=== PATIENT | male | born 1980 | race Caucasian/White ===

== ENCOUNTER 2017-01-30 18:11 | Emergency (ER) | payer MEDICAID ==
--- NOTE | 2017-01-30 18:13 | EDPHY ---
H & P Time Seen by Provider: 01/30/17 18:12 Source: Patient Constitutional: Initial Vital Signs Temperature (C) 37.2 C 01/30/17 18:11 Heart Rate 115 H 01/30/17 18:11 Respiratory Rate 18 01/30/17 18:11 Blood Pressure 166/116 H 01/30/17 18:11 O2 Sat (%) 98 01/30/17 18:11 O2 Delivery Mode Room Air Allergies/Adverse Reactions: No Known Allergies Allergy (Unverified 01/30/17 18:46) Home Medications: Medication Instructions Recorded NK [No Known Home Meds] 01/30/17 Medical Decision Making ED Course/Re-evaluation: CHIEF COMPLAINT: Psychiatric evaluation HISTORY OF PRESENT ILLNESS:The patient was brought in by PD. He states "they are going to bust into your hospital and shoot me. You won't be able to stop them." He refuses to answer further questions. According to the patient's PD report. The patient told PD " I have to commit suicide because I'm being followed by the [facility]." The patient plans to jump into traffic. He reports past attempts of hanging and heroin OD. Patient is having delusions of being followed by [facility]. REVIEW OF SYSTEMS: ROS is limited because patient refuses to answer questions. PHYSICAL EXAM: General Appearance: Disheveled appearing. Refuses to answer questions. Head: Atraumatic without scalp tenderness or obvious injury Eyes: Pupils equal, round, reactive to light and accommodation, EOMI, no trauma , no injection. Ears: Clear bilaterally, no perforation, normal landmarks Nose: Atraumatic, no rhinorrhea, clear. Throat: There is no erythema or exudates, no lesions, normal tonsils, mucus membranes moist. Neck: Supple, 2+ carotid upstroke, nontender, no lymphadenopathy. Respiratory: No retractions, no distress, no wheezes, and no accessory muscle use. Lungs are clear to auscultation bilaterally. Cardiovascular: Regular rate and rhythm, no murmurs, rubs, or gallops. Bilateral carotid, radial, dorsalis pedis, and posterior tibial pulses intact. Good capillary refill all extremities. Gastrointestinal: Abdomen is soft, nontender, non-distended, no masses, no rebound, no guarding, no peritoneal signs. Musculoskeletal: Normal active ROM of all extremities, atraumatic. Neurological: Alert, appropriate, and interactive. The patient has normal DTRs and non-focal cranial nerves, motor, sensory, and cerebellar exam. Skin: No rashes, good turgor, no nodules on palpation. Past medical history: Unknown. Past surgical history: Unknown. Family history: Noncontributory. Social history: Reported heroin abuse. DIFFERENTIAL DIAGNOSIS: The differential diagnosis for the patient's depression included but was not limited to functional and major depression, situational depression, medication side effect, drugs, and alcohol abuse. MEDICAL DECISION MAKING: The patient refuses to answer questions. Patient told PD he was going to jump into traffic. Patient is in no acute distress and is hemodynamically stable. We are awaiting psychiatric team's evaluation. Patient has known history of psychiatric disorders and is here for evaluation. The patient became agitated. He received Zyprexa, Haldol, and Ativan. I signed the patient out to. Dr. Pedrito Guevara at shift change. Pending psych evaluation. - Data Points Laboratory Results: Laboratory Results 01/30/17 18:50 01/30/17 18:50 01/30/17 01/30/17 01/30/17 19:20 18:50 18:50 WBC 8.25 10^3/uL 10^3/uL (3.80-9.50) RBC 5.14 10^6/uL 10^6/uL (4.40-6.38) Hgb 14.5 g/dL g/dL (13.7-17.5) Hct 41.8 % % (40.0-51.0) MCV 81.3 fL L fL (81.5-99.8) MCH 28.2 pg pg (27.9-34.1) MCHC 34.7 g/dL g/dL (32.4-36.7) RDW 12.9 % % (11.5-15.2) Plt Count 311 10^3/uL 10^3/uL (150-400) MPV 8.8 fL fL (8.7-11.7) Neut % (Auto) 76.0 % H % (39.3-74.2) Lymph % (Auto) 16.1 % % (15.0-45.0) [place] % (Auto) 7.3 % % (4.5-13.0) Eos % (Auto) 0.0 % L % (0.6-7.6) Baso % (Auto) 0.2 % L % (0.3-1.7) Nucleat RBC Rel Count 0.0 % % (0.0-0.2) Absolute Neuts (auto) 6.27 10^3/uL 10^3/uL (1.70-6.50) Absolute Lymphs (auto) 1.33 10^3/uL 10^3/uL (1.00-3.00) Absolute Monos (auto) 0.60 10^3/uL 10^3/uL (0.30-0.80) Absolute Eos (auto) 0.00 10^3/uL L 10^3/uL (0.03-0.40) Absolute Basos (auto) 0.02 10^3/uL 10^3/uL (0.02-0.10) Absolute Nucleated RBC 0.00 10^3/uL 10^3/uL (0-0.01) Immature Gran % 0.4 % % (0.0-1.1) Immature Gran # 0.03 10^3/uL 10^3/uL (0.00-0.10) Sodium 139 mEq/L mEq/L (134-144) Potassium 3.1 mEq/L L mEq/L (3.5-5.2) Chloride 101 mEq/L mEq/L (97-110) Carbon Dioxide 21 mEq/l L mEq/l (22-31) Anion Gap 17 mEq/L H mEq/L (8-16) BUN 16 mg/dL mg/dL (7-23) Creatinine 0.8 mg/dL mg/dL (0.7-1.3) Estimated GFR > 60 Glucose 131 mg/dL H mg/dL (70-100) Calcium 10.0 mg/dL mg/dL (8.5-10.4) Salicylates < 1.0 mg/dL L mg/dL (2.0-20.0) Urine Opiates Screen NEGATIVE (NEGATIVE) Acetaminophen < 10 mcg/mL L mcg/mL (10-30) Urine Barbiturates NEGATIVE (NEGATIVE) Ur Phencyclidine Scrn NEGATIVE (NEGATIVE) Ur Amphetamine Screen NON-NEGATIVE H (NEGATIVE) U Benzodiazepines Scrn NEGATIVE (NEGATIVE) Urine Cocaine Screen NON-NEGATIVE H (NEGATIVE) U Marijuana (THC) Screen NEGATIVE (NEGATIVE) Ethyl Alcohol < 10 mg/dL mg/dL (0-10) Medications Given: Discontinued Medications Haloperidol Lactate (Haldol Injection) 10 mg IM EDNOW ONE Stop: 01/30/17 20:09 Last Admin: 01/30/17 20:09 Dose: 10 mg Lorazepam (Ativan Injection) 2 mg IVP EDNOW ONE Stop: 01/30/17 20:08 Last Admin: 01/30/17 20:09 Dose: 2 mg Olanzapine (Olanzapine) 5 mg PO ONCE ONE Stop: 01/30/17 18:30 Last Admin: 01/30/17 18:39 Dose: 5 mg Olanzapine (Olanzapine) 5 mg PO ONCE ONE Stop: 01/30/17 19:46 Last Admin: 01/30/17 20:09 Dose: 5 mg Departure - Departure Referrals: NONE *PRIMARY CARE P,. [Primary Care Provider] - As per Instructions Report Scribed for: Vernon Landrum Report Scribed by: Keely Avilez Date of Report: 01/30/17 Time of Report: 19:00
[2017-01-30] MEDS ORDERED: OLANZapine 5 MG TAB PO ONE ×2 (18:29→19:45)
[2017-01-30 19:02] LABS: % IMMATURE GRANULYOCYTES 0.4 % (0.0-1.1); ABSOLUTE IMMATURE GRANULOCYTES 0.03 10^3/uL (0.00-0.10); ADD DIFF? NO; ADD MORPH? NO; ADD SCAN? NO; ATYPICAL LYMPHOCYTE FLAG 10 (0-99); FRAGMENT RBC FLAG 0 (0-99); HEMATOCRIT 41.8 % (40.0-51.0); HEMOGLOBIN 14.5 g/dL (13.7-17.5); LEFT SHIFT FLG 0 (0-99); LIPEMIA HEMOLYSIS FLAG 90 (0-99); MEAN CELL HEMOGLOBIN 28.2 pg (27.9-34.1); MEAN CELL HEMOGLOBIN CONCENTR. 34.7 g/dL (32.4-36.7); MEAN CELL VOLUME 81.3 fL (81.5-99.8); MEAN PLATELET VOLUME 8.8 fL (8.7-11.7); PLATELET CLUMPS FLAG 0 (0-99); PLATELET COUNT 311 10^3/uL (150-400); RED BLOOD CELL COUNT 5.14 10^6/uL (4.40-6.38); RED CELL DISTRIBUTION WIDTH 12.9 % (11.5-15.2)
[2017-01-30 19:14] LABS: ANION GAP 17 mEq/L (8-16); CARBON DIOXIDE 21 mEq/l (22-31); CHLORIDE 101 mEq/L (97-110); CREATININE 0.8 mg/dL (0.7-1.3); ETHANOL SERUM < 10 mg/dL (0-10); GLOMERULAR FILTRATION RATE > 60; GLUCOSE 131 mg/dL (70-100); POTASSIUM 3.1 mEq/L (3.5-5.2); SALICYLATE < 1.0 mg/dL (2.0-20.0); SODIUM 139 mEq/L (134-144)
[2017-01-30] MEDS ORDERED: LORazepam 2 MG/ML INJ ONE (19:58)
[2017-01-30] MEDS ORDERED: HALOPERIDOL LACT 5 MG/ML INJ ONE (19:58)
[2017-01-30] MEDS ORDERED: LORazepam 2 MG/ML INJ IVP ONE (20:07)
[2017-01-30] MEDS ORDERED: HALOPERIDOL LACT 5 MG/ML INJ IM ONE (20:08)
[2017-01-31 07:55] VITALS: RESP 16
[2017-02-01 04:09] VITALS: BP 111/61; PULSE 55; TEMP 97.5; O2SAT 98
== END 2017-02-01 04:09 ==
DX: F23 Brief psychotic disorder (principal)
CPT/HCPCS: 80305; 96374; G0480; J2060

== ENCOUNTER 2017-02-13 11:02 | Emergency (ER) | payer MEDICAID ==
[2017-02-13 11:19] VITALS: RESP 16
[2017-02-13] MEDS ORDERED: HALOPERIDOL LACT 5 MG/ML INJ ONE (12:46)
[2017-02-13 12:51] LABS: % IMMATURE GRANULYOCYTES 0.4 % (0.0-1.1); ABSOLUTE IMMATURE GRANULOCYTES 0.02 10^3/uL (0.00-0.10); ADD DIFF? NO; ADD MORPH? NO; ADD SCAN? NO; ATYPICAL LYMPHOCYTE FLAG 20 (0-99); FRAGMENT RBC FLAG 0 (0-99); HEMATOCRIT 42.1 % (40.0-51.0); HEMOGLOBIN 14.2 g/dL (13.7-17.5); LEFT SHIFT FLG 0 (0-99); LIPEMIA HEMOLYSIS FLAG 80 (0-99); MEAN CELL HEMOGLOBIN 28.1 pg (27.9-34.1); MEAN CELL HEMOGLOBIN CONCENTR. 33.7 g/dL (32.4-36.7); MEAN CELL VOLUME 83.2 fL (81.5-99.8); MEAN PLATELET VOLUME 9.1 fL (8.7-11.7); PLATELET CLUMPS FLAG 0 (0-99); PLATELET COUNT 298 10^3/uL (150-400); RED BLOOD CELL COUNT 5.06 10^6/uL (4.40-6.38); RED CELL DISTRIBUTION WIDTH 13.2 % (11.5-15.2)
[2017-02-13] MEDS: HALOPERIDOL LACT 5 MG/ML INJ IM ONE (12:56)
[2017-02-13 13:10] LABS: ANION GAP 16 mEq/L (8-16); CALCIUM 9.9 mg/dL (8.5-10.4); CARBON DIOXIDE 24 mEq/l (22-31); CHLORIDE 100 mEq/L (97-110); CREATININE 0.8 mg/dL (0.7-1.3); ETHANOL SERUM < 10 mg/dL (0-10); GLOMERULAR FILTRATION RATE > 60; GLUCOSE 104 mg/dL (70-100); POTASSIUM 3.7 mEq/L (3.5-5.2); SODIUM 140 mEq/L (134-144)
[2017-02-13 13:16] LABS: SALICYLATE < 1.0 mg/dL (2.0-20.0)
[2017-02-13] MEDS ORDERED: fentaNYL 100 MCG/2 ML INJ ONE (15:18)
--- NOTE | 2017-02-13 16:16 | EDPHY ---
H & P Stated Complaint: M1, SUICIDAL - Personal History Current Tetanus Diphtheria and Acellular Pertussis (TDAP): Yes Tetanus Vaccine Date: < 10 YEARS - Medical/Surgical History Hx Asthma: No Hx Chronic Respiratory Disease: No Hx Diabetes: No Hx Cardiac Disease: No Hx Renal Disease: No Hx Cirrhosis: No Hx Alcoholism: No Hx HIV/AIDS: No Hx Splenectomy or Spleen Trauma: No Other PMH: HEROIN ADDICTION, SCHIZO-AFFECTIVE, BIPOLAR, ANIETY, ARTHRITIS, MAJOR DEPRESSIVE DISORDER - Social History Smoking Status: Current every day smoker Time Seen by Provider: 02/13/17 12:39 HPI/ROS: CHIEF COMPLAINT: Suicidal ideation, paranoia HISTORY OF PRESENT ILLNESS: This is a 36-year-old male with a history of schizoaffective disorder, bipolar, and severe major depression recently treated and admitted at [facility] who presents on an M1 hold with suicidal ideation. Evidently the patient went to the courthouse today and reported that he was feeling suicidal and was going to take a gun and kill himself. He reported to her nursing staff that he was going to do off a kiah. He also is expressing the fears for his own safety stating that he thinks others will hurt him. Patient denies having hallucinations on my history although nursing staff was concerned that he may be having auditory hallucinations. Further information is quite limited as the patient has an extremely flat affect and is not forthcoming with additional history. He denies any medical complaints. REVIEW OF SYSTEMS: Somewhat limited, patient is reluctant to answer further questions, denies fevers or chills, pain, headache, abdominal pain, or ingestions. PAST MEDICAL HISTORY: Schizoaffective disorder, bipolar, depression SOCIAL HISTORY: Denies recent alcohol use. Denies drug use. VITAL SIGNS Reviewed by me. GENERAL: Well-developed, well-nourished, flat affect. Answering questions with only 1 or 2 words. HEENT: Atraumatic. Eyes: No icterus, no injection. Mouth: moist mucous membranes. No erythema or lesions. Neck: supple with no adenopathy. LUNGS: Clear to auscultation bilaterally, no wheezes, rhonchi or rales. CARDIAC: Regular rate and rhythm, no rubs, murmurs or gallops. ABDOMEN: Soft, nontender, nondistended, bowel sounds normal. BACK: No CVA tenderness. EXTREMITIES: No trauma. No edema. Range of motion is normal throughout. NEURO: Alert slow to answer questions. Grossly nonfocal.. SKIN: [Warm and dry, no rash. PSYCHIATRIC: Flat affect. Intermittently agitated (Koki Louis) Constitutional: Initial Vital Signs Temperature (C) 36.9 C 02/13/17 11:17 Heart Rate 102 H 02/13/17 11:17 Respiratory Rate 16 02/13/17 11:17 Blood Pressure 152/106 H 02/13/17 11:17 O2 Sat (%) 95 02/13/17 11:17 O2 Delivery Mode Room Air Allergies/Adverse Reactions: No Known Allergies Allergy (Unverified 01/30/17 18:46) Home Medications: Medication Instructions Recorded Suboxone 8 mg-2 mg SL Film 02/01/17 Medical Decision Making - Diagnostics Imaging Results: Imaging Impressions Hand X-Ray 02/13/17 19:24 Impression: Nothing acute identified. ED Course/Re-evaluation: Shortly after my history and physical exam, as I stepped out of the room, the patient abruptly became quite agitated and was punching a wall and stating that we observed tonight. Patient was restrained for his own safety. He was sedated with Haldol as well as Benadryl. Laboratory evaluation is largely unremarkable. We are awaiting urinalysis for urine tox and further medical clearance. Care was assumed by Dr. Taylor at 4:15 p.m.. (MissyKoki Falcon) 4:00 a.m.- I accepted sign-out on this patient from Dr. Taylor at approximately 10:30 p.m.. He is currently undergoing mental health evaluation. He told the bullion weigher that he is concerned that he is withdrawing from his Suboxone. He was able to show us his prescription which is for Suboxone 8 mg/2 mg sublingual twice daily. We will send this to the pharmacy for verification and then order it for him to take here. 5:00 a.m.- The patient was seen and evaluated by the mental health worker. She would like to drop the patient's M1 hold as the patient is now calm and not suicidal. She thinks much of his paranoia and delusions are related to his methamphetamine use. The patient is interested in going to detox. We will [facility] from the emergency department. I have lifted the M1 hold.. (Chela Álvarez) Differential Diagnosis: Differential diagnosis of the patient's presenting complaint was considered including but not limited to functional and major depression, acute paranoia, acute delusions, drug or alcohol effect, drug or alcohol withdrawal, medication effects, schizophrenia, bipolar. (Koki Louis) - Data Points Laboratory Results: Laboratory Results 02/13/17 12:30 02/13/17 12:30 Medications Given: Discontinued Medications Chlordiazepoxide (Librium 25 Mg Prepack#6) 1 btl TAKEHOME EDNOW ONE Stop: 02/14/17 04:39 Last Admin: 02/14/17 05:04 Dose: 1 btl Haloperidol Lactate (Haldol Injection) 10 mg IM EDNOW ONE Stop: 02/13/17 12:51 Last Admin: 02/13/17 12:56 Dose: 10 mg Miscellaneous Medication (Non-Formulary) 1 ea SL BID PURVI Stop: 02/24/17 04:14 Last Admin: 02/14/17 04:14 Dose: 8 mg Departure - Departure Disposition: Home, Routine, Self-Care Clinical Impression: Acute psychosis, Paranoid Condition: Good Instructions: Methamphetamine Abuse (ED) Additional Instructions: Please return to the emergency department if your worse in any way. Referrals: [facility] [Outside] - As per Instructions
[2017-02-13 23:12] VITALS: TEMP 97.5
[2017-02-14] MEDS ORDERED: SUBOXONE SL SCH (04:15)
[2017-02-14] MEDS ORDERED: CHLORDIAZEPOXIDE 25MG PREPK#6 BTL TAKEHOME ONE (04:38)
[2017-02-14 05:07] VITALS: BP 118/65; PULSE 85; O2SAT 96
== END 2017-02-14 05:12 | disposition home or self-care (01) ==
DX: S69.92XA Unspecified injury of left wrist, hand and finger(s), initial encounter (principal); F22 Delusional disorders; F17.200 Nicotine dependence, unspecified, uncomplicated
CPT/HCPCS: 80305; G0480; J0574; J3010

== ENCOUNTER 2017-03-03 23:04 | Emergency (ER) | payer MEDICAID, OTHER ==
[2017-03-03 23:12] VITALS: TEMP 98.4
--- NOTE | 2017-03-03 23:12 | EDPHY ---
H & P HPI/ROS: HPI The patient presents brought in by ambulance from the [facility] with complain of chest pain and palpitations which have been present for the last several hours. The patient used methamphetamine about 6 hr ago. He then developed slow onset of diffuse chest pain which is sharp associated with palpitations. He has not used methamphetamine in several months and took it because he had to cut down on his Suboxone dose because someone stole it. He is feeling somewhat panicked. Paramedics performed EKG in the field which was unremarkable. REVIEW OF SYSTEMS Constitutional: No fever, no chills. Eyes: No discharge. ENT: No sore throat. Cardiovascular: No chest pain, no palpitations. Respiratory: No cough, no shortness of breath. Gastrointestinal: No abdominal pain, no vomiting. Genitourinary: No hematuria. Musculoskeletal: No back pain. Skin: No rashes. Neurological: No headache. PMHx: Reported schizoaffective disorder and bipolar disorder, history of heroin abuse now on Suboxone Soc Hx: Homeless, history of heroin abuse, now on Suboxone, methamphetamine abuse PHYSICAL General Appearance: Alert, anxious Eyes: Pupils equal and round no pallor or injection ENT, Mouth: Mucous membranes moist Respiratory: There are no retractions, lungs are clear to auscultation Cardiovascular: Tachycardic rate, regular rhythm Gastrointestinal: Abdomen is soft and non-tender, no masses, bowel sounds normal Neurological: A&O, moves all extremities Skin: Warm and dry, no rashes Musculoskeletal: Neck is supple non tender Extremities: symmetrical, full range of motion Psychiatric: Patient is oriented X 3, there is no agitation Exam Limitations: Intoxication - Personal History Tetanus Vaccine Date: < 10 YEARS - Medical/Surgical History Hx Asthma: No Hx Chronic Respiratory Disease: No Hx Diabetes: No Hx Cardiac Disease: No Hx Renal Disease: No Hx Cirrhosis: No Hx Alcoholism: No Hx HIV/AIDS: No Hx Splenectomy or Spleen Trauma: No Other PMH: HEROIN ADDICTION, SCHIZO-AFFECTIVE, BIPOLAR, ANIETY, ARTHRITIS, MAJOR DEPRESSIVE DISORDER - Social History Smoking Status: Current every day smoker Constitutional: Initial Vital Signs Temperature (C) 36.9 C 03/03/17 23:11 Heart Rate 115 H 03/03/17 23:11 Respiratory Rate 20 03/03/17 23:11 Blood Pressure 175/100 H 03/03/17 23:11 O2 Sat (%) 98 03/03/17 23:11 O2 Delivery Mode Room Air Allergies/Adverse Reactions: No Known Allergies Allergy (Unverified 01/30/17 18:46) Home Medications: Medication Instructions Recorded Suboxone 8 mg-2 mg SL Film 02/01/17 Gabapentin 03/03/17 Seroquel 03/03/17 Sertraline HCl 03/03/17 Medical Decision Making - Diagnostics EKG Interpretation: EKG: Complete interpretation has been separately recorded in the [email or web address] archive. Summary impression: Sinus tachycardia, rate 100 Differential Diagnosis: This is a 36-year-old male, history of heroin abuse, now on Suboxone who relapsed on methamphetamine about 6 hr ago as his Suboxone dose was cut in half. He is now feeling palpitations and chest pains. Differential diagnosis includes side-effect of methamphetamine, ACS, PACs, V- tach. In the emergency department, vital signs were checked and he was hypertensive and tachycardic. He does have a reported history of hypertension. His EKG was unremarkable, basic labs were checked and were normal. After a L of fluid he was feeling much better. - Data Points Laboratory Results: Laboratory Results 03/03/17 23:35 03/03/17 23:35 03/03/17 03/03/17 23:35 23:35 WBC 4.43 10^3/uL 10^3/uL (3.80-9.50) RBC 5.17 10^6/uL 10^6/uL (4.40-6.38) Hgb 14.5 g/dL g/dL (13.7-17.5) Hct 42.3 % % (40.0-51.0) MCV 81.8 fL fL (81.5-99.8) MCH 28.0 pg pg (27.9-34.1) MCHC 34.3 g/dL g/dL (32.4-36.7) RDW 13.0 % % (11.5-15.2) Plt Count 267 10^3/uL 10^3/uL (150-400) MPV 9.2 fL fL (8.7-11.7) Neut % (Auto) 65.7 % % (39.3-74.2) Lymph % (Auto) 26.2 % % (15.0-45.0) [place] % (Auto) 7.4 % % (4.5-13.0) Eos % (Auto) 0.0 % L % (0.6-7.6) Baso % (Auto) 0.5 % % (0.3-1.7) Nucleat RBC Rel Count 0.0 % % (0.0-0.2) Absolute Neuts (auto) 2.91 10^3/uL 10^3/uL (1.70-6.50) Absolute Lymphs (auto) 1.16 10^3/uL 10^3/uL (1.00-3.00) Absolute Monos (auto) 0.33 10^3/uL 10^3/uL (0.30-0.80) Absolute Eos (auto) 0.00 10^3/uL L 10^3/uL (0.03-0.40) Absolute Basos (auto) 0.02 10^3/uL 10^3/uL (0.02-0.10) Absolute Nucleated RBC 0.00 10^3/uL 10^3/uL (0-0.01) Immature Gran % 0.2 % % (0.0-1.1) Immature Gran # 0.01 10^3/uL 10^3/uL (0.00-0.10) Sodium 144 mEq/L mEq/L (134-144) Potassium 4.1 mEq/L mEq/L (3.5-5.2) Chloride 105 mEq/L mEq/L (97-110) Carbon Dioxide 21 mEq/l L mEq/l (22-31) Anion Gap 18 mEq/L H mEq/L (8-16) BUN 11 mg/dL mg/dL (7-23) Creatinine 0.8 mg/dL mg/dL (0.7-1.3) Estimated GFR > 60 Glucose 85 mg/dL mg/dL (70-100) Calcium 10.1 mg/dL mg/dL (8.5-10.4) Total Bilirubin 0.6 mg/dL mg/dL (0.1-1.4) AST 26 IU/L IU/L (17-59) ALT 28 IU/L IU/L (21-72) Alkaline Phosphatase 85 IU/L IU/L (38-126) Troponin I < 0.012 ng/mL ng/mL (0.000-0.034) Total Protein 7.8 g/dL g/dL (6.3-8.2) Albumin 4.6 g/dL g/dL (3.5-5.0) Medications Given: Discontinued Medications Sodium Chloride (Ns) 1,000 mls @ 0 mls/hr IV EDNOW ONE; Wide Open PRN Reason: Protocol Stop: 03/03/17 23:14 Last Admin: 03/03/17 23:41 Dose: 1,000 mls Lorazepam (Ativan Injection) 1 mg IVP EDNOW ONE Stop: 03/03/17 23:53 Last Admin: 03/03/17 23:52 Dose: 1 mg Departure - Departure Disposition: Home, Routine, Self-Care Clinical Impression: Methamphetamine intoxication Chest pain Qualifiers: Chest pain type: other chest pain Qualified Code(s): R07.89 - Other chest pain ; R07.8 - Other chest pain Condition: Good Instructions: Methamphetamine Abuse (ED) Referrals: [facility] [Outside] - As per Instructions
[2017-03-03] MEDS ORDERED: NS 1,000 ML IV ONE (23:13)
--- NOTE | 2017-03-03 23:17 | CPEKG ---
Heart Rate: 100 RR Interval: 600 P-R Interval: 180 QRSD Interval: 102 QT Interval: 364 QTC Interval: 470 P [place]: 58 QRS [place]: 73 T Wave [place]: 54 EKG Severity - BORDERLINE ECG - EKG Impression: SINUS TACHYCARDIA EKG Impression: BORDERLINE PROLONGED QT INTERVAL Electronically Signed By: Chela Álvarez 04-Mar-2017 06:02:52
[2017-03-03] MEDS ORDERED: LORazepam 2 MG/ML INJ ONE (23:51)
[2017-03-03 23:52] LABS: PLATELET COUNT 267 10^3/uL (150-400)
[2017-03-03] MEDS ORDERED: LORazepam 2 MG/ML INJ IVP ONE (23:52)
[2017-03-04 00:12] VITALS: BP 159/106; PULSE 84; RESP 16; O2SAT 96
== END 2017-03-04 00:34 | disposition home or self-care (01) ==
LOC: EDUNIT#
DX: F15.129 Other stimulant abuse with intoxication, unspecified (principal); R07.89 Other chest pain; F17.200 Nicotine dependence, unspecified, uncomplicated; E86.9 Volume depletion, unspecified
CPT/HCPCS: 96374; J2060

== ENCOUNTER 2017-03-04 05:06 | Emergency (ER) | payer MEDICAID ==
[2017-03-04] MEDS ORDERED: OLANZapine DISINTEGR 10 MG TAB ONE (05:20)
[2017-03-04] MEDS ORDERED: OLANZapine DISINTEGR 10 MG TAB PO ONE ×2 (05:30→06:44)
--- NOTE | 2017-03-04 06:13 | EDPHY ---
H & P Stated Complaint: M1 hold, hearing voices, Meth use Source: Patient, EMS Exam Limitations: No limitations - Personal History Current Tetanus/Diphtheria Vaccine: Yes Current Tetanus Diphtheria and Acellular Pertussis (TDAP): Yes Tetanus Vaccine Date: < 10 YEARS - Medical/Surgical History Hx Asthma: No Hx Chronic Respiratory Disease: No Hx Diabetes: No Hx Cardiac Disease: No Hx Renal Disease: No Hx Cirrhosis: No Hx Alcoholism: No Hx HIV/AIDS: No Hx Splenectomy or Spleen Trauma: No Other PMH: HEROIN ADDICTION, SCHIZO-AFFECTIVE, BIPOLAR, ANIETY, ARTHRITIS, MAJOR DEPRESSIVE DISORDER, Meth use - Social History Smoking Status: Current every day smoker Time Seen by Provider: 03/04/17 05:14 HPI/ROS: HPI The patient presents with suicidal ideation on M[facility] hold [facility]. I saw him earlier in the evening tonight after a meth binge is. He requested to go to the [facility]. While he was there, he began to hear voices while he was being interviewed. The voices were telling him to hurt himself and told him that he was going to . He has no prior history of this and was very concerned. As this made him so worried he wanted to commit suicide. He does have a history of bipolar disorder and schizoaffective disorder. He says he is compliant with his medications. As he did relapse on methamphetamine as his Suboxone dose was altered.. REVIEW OF SYSTEMS Constitutional: No fever, no chills. Eyes: No discharge. ENT: No sore throat. Cardiovascular: No chest pain, no palpitations. Respiratory: No cough, no shortness of breath. Gastrointestinal: No abdominal pain, no vomiting. Genitourinary: No hematuria. Musculoskeletal: No back pain. Skin: No rashes. Neurological: No headache. PMHx: Reported bipolar and schizoaffective disorder Soc Hx: Homeless, history of heroin abuse, history of methamphetamine abuse PHYSICAL General Appearance: Alert, no distress Eyes: Pupils equal and round no pallor or injection ENT, Mouth: Mucous membranes moist Respiratory: There are no retractions, lungs are clear to auscultation Cardiovascular: Regular rate and rhythm Gastrointestinal: Abdomen is soft and non-tender, no masses, bowel sounds normal Neurological: A&O, moves all extremities Skin: Warm and dry, no rashes Musculoskeletal: Neck is supple non tender Extremities: symmetrical, full range of motion Psychiatric: Patient is oriented X 3, there is no agitation (Chela Álvarez) Constitutional: Initial Vital Signs Temperature (C) 36.7 C 03/04/17 05:24 Heart Rate 110 H 03/04/17 05:24 Respiratory Rate 18 03/04/17 05:24 Blood Pressure 145/101 H 03/04/17 05:24 O2 Sat (%) 97 03/04/17 05:24 O2 Delivery Mode Room Air Allergies/Adverse Reactions: haloperidol [From Haldol] Allergy (Verified 03/04/17 10:42) ibuprofen Allergy (Verified 03/04/17 10:42) Home Medications: Medication Instructions Recorded Suboxone 8 mg-2 mg SL Film 02/01/17 Gabapentin 03/03/17 Seroquel 03/03/17 Sertraline HCl 03/03/17 Polyethylene Glycol 3350 03/04/17 Medical Decision Making ED Course/Re-evaluation: Patient's I me at 9:00 a.m.. He has bilateral injured eyes and scrubbed. Has yellowish goop from his eyes. He tells me that whenever he does meth he has I injection in the past has been treated with antibiotic eyedrops. He is also concerned about his Suboxone that he had half prescriptions stolen. He remains somewhat Agitated. Antibiotic eyedrops are ordered. Continues agitation after Ativan orally and 210 mg tablets of Zyprexa. At 10: 35 a.m. patient is ordered Haldol and Benadryl orally (Ronaldo Estrada) 1500: The patient is signed out to me at change of shift. The patient is stable. He is awaiting evaluation. 1845: I discussed the case with Psychiatric Services. They recommended the patient be transferred back to withdrawal care. Patient is comfortable this plan. He denies suicidal ideation at this time. Mental health hold was lifted. (Maritza Montes) Differential Diagnosis: 36-year-old man with past psychiatric history presents from the [facility] on M1 hold for suicidal ideation in the setting of hearing voices. He does admit to using methamphetamine today. He was seen earlier today because of chest pain associated with meth use. He had normal EKG, troponin, basic laboratory testing. As we will check urinalysis. His we will observe him. We will have the mental health team evaluate him. Differential diagnosis includes methamphetamine intoxication, psychosis related to his schizoaffective disorder, suicidal ideation. In the emergency department, patient was monitored. He was given a dose of Zyprexa Zydis with improvement in his symptoms. Labs were checked and UA was positive for methamphetamine as well as benzodiazepines which we gave him here in the emergency department. At 7:00 a.m., the case is signed out to the oncoming provider Dr. Estrada. Patient will have to wait until later today to be evaluated by mental health services given his positive amphetamine screen. (Chela Álvarez) - Data Points Medications Given: Buprenorphine HCl (Suboxone 8mg/2mg) 1 tab SL DAILY PURVI Stop: 03/14/17 16:44 Last Admin: 03/04/17 16:55 Dose: 1 tab Ofloxacin (Ocuflox 0.3%) 1 drops EACHEYE Q6H PURVI Stop: 04/03/17 12:59 Last Admin: 03/04/17 16:55 Dose: 2 drop Discontinued Medications Diphenhydramine HCl (Benadryl) 50 mg PO EDNOW ONE Stop: 03/04/17 10:34 Last Admin: 03/04/17 10:50 Dose: 50 mg Haloperidol (Haldol) 5 mg PO EDNOW ONE Stop: 03/04/17 10:34 Last Admin: 03/04/17 11:18 Dose: Not Given Lorazepam (Ativan) 1 mg PO EDNOW ONE Stop: 03/04/17 09:08 Last Admin: 03/04/17 09:16 Dose: 1 mg Ofloxacin (Ocuflox 0.3% Opht Drops Prepack) 1 btl TAKEHOME EDNOW ONE Stop: 03/04/17 09:08 Last Admin: 03/04/17 09:16 Dose: 1 btl Olanzapine (Zyprexa Zydis) 10 mg PO EDNOW ONE Stop: 03/04/17 05:31 Last Admin: 03/04/17 05:30 Dose: 10 mg Olanzapine (Zyprexa Zydis) 10 mg PO EDNOW ONE Stop: 03/04/17 06:45 Last Admin: 03/04/17 06:48 Dose: 10 mg Olanzapine (Zyprexa Im Injection) 10 mg IM EDNOW ONE Stop: 03/04/17 10:44 Last Admin: 03/04/17 10:49 Dose: 10 mg Departure - Departure Disposition: Home, Routine, Self-Care Clinical Impression: Methamphetamine intoxication, Acute psychosis Condition: Good Instructions: Methamphetamine Abuse (ED) Referrals: [facility] [Clinic] - As per Instructions
[2017-03-04] MEDS ORDERED: LORazepam 1 MG TAB PO ONE (09:07)
[2017-03-04] MEDS ORDERED: OFLOXACIN 0.3% SOLN PREPACK OPHT.BTL TAKEHOME ONE (09:07)
[2017-03-04] MEDS ORDERED: diphenhydrAMINE 25 MG CAP PO ONE (10:33)
[2017-03-04] MEDS ORDERED: HALOPERIDOL 5 MG TAB PO ONE (10:33)
[2017-03-04] MEDS ORDERED: HALOPERIDOL LACT 5 MG/ML INJ ONE (10:38)
[2017-03-04] MEDS ORDERED: OLANZapine 10 MG/2 ML VIAL IM ONE (10:43)
[2017-03-04] MEDS: OFLOXACIN 0.3% 5ML OPHT DROPS EACHEYE SCH ×2 (12:57→16:55)
[2017-03-04 19:30] VITALS: BP 136/95; PULSE 106; RESP 16; TEMP 97.3; O2SAT 99
[2017-03-04] MEDS ORDERED: QUEtiapine FUMARATE 300 MG TAB PO SCH (21:00)
== END 2017-03-04 19:41 | disposition home or self-care (01) ==
LOC: EDUNIT#
DX: F23 Brief psychotic disorder (principal); F15.129 Other stimulant abuse with intoxication, unspecified; F17.200 Nicotine dependence, unspecified, uncomplicated
CPT/HCPCS: 80305; J0574; J1630

== ENCOUNTER 2017-04-01 03:11 | Emergency (ER) | payer MEDICAID ==
[2017-04-01 03:16] VITALS: TEMP 97.9
--- NOTE | 2017-04-01 03:36 | EDPHY ---
H & P Stated Complaint: Thinks someone gave him drungs, feels "funny" Time Seen by Provider: 04/01/17 03:29 HPI/ROS: Chief Complaint: Thinks he may have been given drugs HPI: 36-year-old male states that he was shooting meth about 7 or 8 hr ago. Someone told him that the meth may have been cut with bath salts. He is worried that he may have been exposed to something may have harmed him. Patient states that after injecting he felt a little queasy and "funny ". Patient states that symptoms have since resolved. Does have a extensive mental health history. Is not feeling particularly paranoid there is at this time. Is not hallucinating. Is not suicidal or depressed. No nausea or vomiting. No chest pain. No shortness of breath. ROS: 10 point Review of Systems is negative except as noted in the HPI. Family History: non-contributory Physical Exam: Gen: Awake, Alert, No Distress HEENT: Nose: no rhinorrhea Eyes: PERRLA, EOMI Mouth: Moist mucosa Neck: Supple, no JVD Chest: nontender, lungs clear to auscultation Heart: S1, S2 normal, no murmur Abd: Soft, non-tender, no guarding Back: no CVA tenderness, no midline tenderness Ext: no edema, non-tender Skin: no rash Neuro: CN II-XII intact, Sensation grossly intact, Strength 5/5 in bilateral upper and lower extremities - Personal History Current Tetanus/Diphtheria Vaccine: Yes Current Tetanus Diphtheria and Acellular Pertussis (TDAP): Yes Tetanus Vaccine Date: < 10 YEARS - Medical/Surgical History Hx Asthma: No Hx Chronic Respiratory Disease: No Hx Diabetes: No Hx Cardiac Disease: No Hx Renal Disease: No Hx Cirrhosis: No Hx Alcoholism: No Hx HIV/AIDS: No Hx Splenectomy or Spleen Trauma: No Other PMH: HEROIN ADDICTION, SCHIZO-AFFECTIVE, BIPOLAR, ANIETY, ARTHRITIS, MAJOR DEPRESSIVE DISORDER, Meth use - Social History Smoking Status: Current every day smoker Constitutional: Initial Vital Signs Temperature (C) 36.6 C 04/01/17 03:13 Heart Rate 129 H 04/01/17 03:13 Respiratory Rate 18 04/01/17 03:13 Blood Pressure 136/102 H 04/01/17 03:13 O2 Sat (%) 99 04/01/17 03:13 O2 Delivery Mode Room Air Allergies/Adverse Reactions: haloperidol [From Haldol] Allergy (Verified 04/01/17 03:13) ibuprofen Allergy (Verified 04/01/17 03:13) Home Medications: Medication Instructions Recorded Suboxone 8 mg-2 mg SL Film 02/01/17 Gabapentin 03/03/17 Seroquel 03/03/17 Sertraline HCl 03/03/17 Medical Decision Making ED Course/Re-evaluation: 36-year-old male who was injecting meth summary hours ago is concerned he may have been exposed to bath salts. Patient is awake and oriented acting appropriately now. Examination is unremarkable. There is no evidence ill affects. His mentation is appropriate. Will discharge with instructions to avoid polysubstance abuse, follow up with mental health provider. Departure - Departure Disposition: Home, Routine, Self-Care Clinical Impression: Polysubstance abuse Condition: Good Instructions: Polysubstance Abuse (ED) Additional Instructions: Follow up with your mental health provider at [facility]. Referrals: [facility],. [Clinic] - As per Instructions
[2017-04-01 03:43] VITALS: BP 141/76; PULSE 80; RESP 16; O2SAT 94
[2017-04-01] MEDS ORDERED: LORazepam 1 MG TAB ONE (05:09)
[2017-04-01] MEDS ORDERED: LORazepam 1 MG TAB PO ONE (05:15)
== END 2017-04-01 03:43 | disposition home or self-care (01) ==
LOC: EDUNIT#
DX: F15.10 Other stimulant abuse, uncomplicated (principal); F17.200 Nicotine dependence, unspecified, uncomplicated

== ENCOUNTER 2017-04-01 05:46 | Emergency (ER) | payer MEDICAID ==
--- NOTE | 2017-04-01 06:04 | EDPHY ---
H & P Stated Complaint: PT WAS D/ANIBAL. CALLED FOR A TAXI THEN GOT WORKED UP MADE SI STATEMENTS - Personal History Current Tetanus/Diphtheria Vaccine: Yes Current Tetanus Diphtheria and Acellular Pertussis (TDAP): Yes Tetanus Vaccine Date: < 10 YEARS - Medical/Surgical History Hx Asthma: No Hx Chronic Respiratory Disease: No Hx Diabetes: No Hx Cardiac Disease: No Hx Renal Disease: No Hx Cirrhosis: No Hx Alcoholism: No Hx HIV/AIDS: No Hx Splenectomy or Spleen Trauma: No Other PMH: HEROIN ADDICTION, SCHIZO-AFFECTIVE, BIPOLAR, ANIETY, ARTHRITIS, MAJOR DEPRESSIVE DISORDER, Meth use - Social History Smoking Status: Current every day smoker Time Seen by Provider: 04/01/17 05:58 HPI/ROS: Chief Complaint: Paranoid, suicidal HPI: 36-year-old male that actually saw just a couple of hours ago with concerns about the methamphetamine he had used earlier being mixed with bath salts. Patient was medically cleared by me and discharged home. Patient proceeded to sit and wait in the waiting room and became more agitated. Patient states that he was feeling fine when I saw him earlier but is getting increasingly afraid that there are people out to get them. He does not want to tell me who they are. He states he has also started having some suicidal thoughts. Does not have a plan how he will harm himself. He does have a history of schizoaffective disorder he states. He claims that he is taking his medications but did admit to Re earlier that he is continuing to use methamphetamine. Denies any recent fevers or chills. No nausea or vomiting. Denies hearing voices. ROS: 10 point Review of Systems is negative except as noted in the HPI. PMH: Schizoaffective disorder, methamphetamine abuse Social History: Positive smoking, no alcohol, occasional methamphetamine Family History: non-contributory Physical Exam: Gen: Awake, Alert, anxious appearing HEENT: Nose: no rhinorrhea Eyes: PERRLA, EOMI Mouth: Moist mucosa Neck: Supple, no JVD Chest: nontender, lungs clear to auscultation Heart: S1, S2 normal, no murmur Abd: Soft, non-tender, no guarding Back: no CVA tenderness, no midline tenderness Ext: no edema, non-tender Skin: no rash Neuro: CN II-XII intact, Sensation grossly intact, Strength 5/5 in bilateral upper and lower extremities (Donn Odell) Constitutional: Initial Vital Signs Temperature (C) 36.6 C 04/01/17 05:51 Heart Rate 125 H 04/01/17 05:51 Respiratory Rate 20 04/01/17 05:51 Blood Pressure 142/113 H 04/01/17 05:51 O2 Sat (%) 96 04/01/17 05:51 O2 Delivery Mode Room Air Allergies/Adverse Reactions: haloperidol [From Haldol] Allergy (Verified 04/01/17 05:53) ibuprofen Allergy (Verified 04/01/17 05:53) Home Medications: Medication Instructions Recorded Suboxone 8 mg-2 mg SL Film 02/01/17 Gabapentin 03/03/17 Seroquel 03/03/17 Sertraline HCl 03/03/17 Medical Decision Making ED Course/Re-evaluation: 0700 Patient is increasingly paranoid here. I think likely secondary to methamphetamine however he will need a mental health evaluation. I have her 5 mg of Zyprexa p.o. Patient signed out to Dr. Taylor pending mental health evaluation. (Donn Odell) 3:00 p.m.-I assumed care of this patient at shift change. He has a history of methamphetamine abuse and paranoia awaited to methamphetamine. He presented with suicidal ideation. He has received multiple doses of Zyprexa and Ativan. 6:00 p.m.-this patient denies suicidal ideation. [facility] would [facility]. I feel that this is an appropriate plan for the patient. (Grace Ruiz) Other Provider: Patient signed out to me at 0700. Treated with several doses of zyprexa and ativan with good results. At this point I think patient's presentation is consistent with meth intoxication. I do not think patient meets criteria for M1 hold at this time. Signed out to Dr. Ruiz at 1500. (Florencio Taylor) - Data Points Laboratory Results: Laboratory Results 04/01/17 06:27 04/01/17 06:27 Medications Given: Discontinued Medications Diphenhydramine HCl (Benadryl) 50 mg PO EDNOW ONE Stop: 04/01/17 10:18 Last Admin: 04/01/17 10:21 Dose: 50 mg Lorazepam (Ativan) 1 mg PO EDNOW ONE Stop: 04/01/17 07:45 Last Admin: 04/01/17 07:51 Dose: 1 mg Lorazepam (Ativan) 1 mg PO EDNOW ONE Stop: 04/01/17 08:53 Last Admin: 04/01/17 08:54 Dose: 1 mg Olanzapine (Zyprexa Zydis) 5 mg PO EDNOW ONE Stop: 04/01/17 06:44 Last Admin: 04/01/17 06:48 Dose: 5 mg Olanzapine (Zyprexa Zydis) 5 mg PO EDNOW ONE Stop: 04/01/17 07:45 Last Admin: 04/01/17 07:50 Dose: 5 mg Olanzapine (Zyprexa Zydis) 10 mg PO EDNOW ONE Stop: 04/01/17 10:18 Last Admin: 04/01/17 10:21 Dose: 10 mg Departure - Departure Disposition: Home, Routine, Self-Care Clinical Impression: Methamphetamine abuse, Suicidal ideation Condition: Fair Instructions: Methamphetamine Abuse (ED), Suicide Prevention for Adults (ED) Referrals: [facility],. [Clinic] - As per Instructions (Call to make an appointment.) [facility] [Outside] - As per Instructions
[2017-04-01 06:43] LABS: PLATELET COUNT 356 10^3/uL (150-400)
[2017-04-01] MEDS ORDERED: OLANZapine DISINTEGR 5 MG TAB PO ONE ×2 (06:43→07:44)
[2017-04-01] MEDS ORDERED: LORazepam 1 MG TAB PO ONE ×2 (07:44→08:52)
[2017-04-01] MEDS ORDERED: diphenhydrAMINE 25 MG CAP PO ONE (10:17)
[2017-04-01] MEDS ORDERED: OLANZapine DISINTEGR 10 MG TAB PO ONE (10:17)
[2017-04-01 15:53] VITALS: RESP 16; TEMP 97.3
[2017-04-01 18:03] VITALS: BP 124/78; PULSE 102; O2SAT 94
== END 2017-04-01 18:07 | disposition home or self-care (01) ==
DX: R45.851 Suicidal ideations (principal); F15.10 Other stimulant abuse, uncomplicated; F17.200 Nicotine dependence, unspecified, uncomplicated
CPT/HCPCS: 80305; G0480

== ENCOUNTER 2017-04-11 23:25 | Emergency (ER) | payer MEDICAID ==
--- NOTE | 2017-04-11 23:28 | EDPHY ---
H & P HPI/ROS: HPI CHIEF COMPLAINT: M1 hold by [employer] [facility]. HISTORY OF PRESENT ILLNESS: This patient is a 36-year-old male, history of schizoaffective disorder, presents emergency room after he called 911 from the homeless [facility] stating that the voices in his head or worse than normal. They do report SI and HI. However the patient denies this to me. He is on M1 hold by police. Patient admits to methamphetamine a week ago. He thinks that his voices are stronger due to meth. Past Medical History: Schizoaffective disorder, major depressive disorder, anxiety, polysubstance abuse Past Surgical History: No recent surgery Social History: Polysubstance abuse including methamphetamine recently. Homeless. Family History: Noncontributory ROS REVIEW OF SYSTEMS: A comprehensive 10 point review of systems is otherwise negative aside from elements mentioned in the history of present illness. Exam Constitutional calm and cooperative triage nursing summary reviewed, vital signs reviewed, awake/alert. Eyes normal conjunctivae and sclera, EOMI, PERRLA. HENT normal inspection, atraumatic, moist mucus membranes, no epistaxis, neck supple/ no meningismus, no raccoon eyes. Respiratory clear to auscultation bilaterally, normal breath sounds, no respiratory distress, no wheezing. Cardiovascular rate normal, regular rhythm, no murmur, no edema, distal pulses normal. Gastrointestinal soft, non-tender, no rebound, no guarding, normal bowel sounds, no distension, no pulsatile mass. Genitourinary no CVA tenderness. Musculoskeletal no midline vertebral tenderness, full range of motion, no calf swelling, no tenderness of extremities, no meningismus, good pulses, neurovascularly intact. Skin pink, warm, & dry, no rash, skin atraumatic. Neurologic awake, alert and oriented x 3, AAOx3, moves all 4 extremities equally, motor intact, sensory intact, CN II-XII intact, normal cerebellar, normal vision, normal speech. Psychiatric not acutely psychotic, normal mood/affect. Heme/Lymph/Immune no lymphadenopathy. Differential Diagnosis: Includes but is not limited to in a particular order schizoaffective disorder, substance abuse including methamphetamine, anxiety Medical Decision Making: Plan for this patient he is on M1 hold by [employer], will check basic blood work and drug screen for medical clearance and then patient will need mental health evaluation. Re-evaluation: 0215: Patient has been evaluated by mental health. They do not feel that he needs to be on M1 hold. The patient is specifically requesting go to detox. Patient contracts for safety. He denies wanting to hurt himself or anybody else. He would like to go to detox this evening. Most likely be lifting his hold and discharging to detox. Source: Patient, Police - Personal History Tetanus Vaccine Date: < 10 YEARS - Medical/Surgical History Hx Asthma: No Hx Chronic Respiratory Disease: No Hx Diabetes: No Hx Cardiac Disease: No Hx Renal Disease: No Hx Cirrhosis: No Hx Alcoholism: No Hx HIV/AIDS: No Hx Splenectomy or Spleen Trauma: No Other PMH: HEROIN ADDICTION, SCHIZO-AFFECTIVE, BIPOLAR, ANIETY, ARTHRITIS, MAJOR DEPRESSIVE DISORDER, Meth use - Social History Smoking Status: Current every day smoker Constitutional: Initial Vital Signs Temperature (C) 36.4 C 04/11/17 23:53 Heart Rate 121 H 04/11/17 23:53 Respiratory Rate 18 04/11/17 23:53 Blood Pressure 174/106 H 04/11/17 23:53 O2 Sat (%) 97 04/11/17 23:53 O2 Delivery Mode Room Air Allergies/Adverse Reactions: haloperidol [From Haldol] Allergy (Verified 04/01/17 05:53) ibuprofen Allergy (Verified 04/01/17 05:53) Home Medications: Medication Instructions Recorded Suboxone 8 mg-2 mg SL Film 02/01/17 Gabapentin 03/03/17 Seroquel 03/03/17 Sertraline HCl 03/03/17 Medical Decision Making - Data Points Laboratory Results: Laboratory Results 04/12/17 00:19 04/12/17 00:19 04/12/17 04/12/17 04/12/17 00:22 00:19 00:19 WBC 5.49 10^3/uL 10^3/uL (3.80-9.50) RBC 5.62 10^6/uL 10^6/uL (4.40-6.38) Hgb 15.6 g/dL g/dL (13.7-17.5) Hct 45.1 % % (40.0-51.0) MCV 80.2 fL L fL (81.5-99.8) MCH 27.8 pg L pg (27.9-34.1) MCHC 34.6 g/dL g/dL (32.4-36.7) RDW 13.2 % % (11.5-15.2) Plt Count 338 10^3/uL 10^3/uL (150-400) MPV 8.8 fL fL (8.7-11.7) Neut % (Auto) 69.2 % % (39.3-74.2) Lymph % (Auto) 21.5 % % (15.0-45.0) [place] % (Auto) 7.8 % % (4.5-13.0) Eos % (Auto) 0.9 % % (0.6-7.6) Baso % (Auto) 0.4 % % (0.3-1.7) Nucleat RBC Rel Count 0.0 % % (0.0-0.2) Absolute Neuts (auto) 3.80 10^3/uL 10^3/uL (1.70-6.50) Absolute Lymphs (auto) 1.18 10^3/uL 10^3/uL (1.00-3.00) Absolute Monos (auto) 0.43 10^3/uL 10^3/uL (0.30-0.80) Absolute Eos (auto) 0.05 10^3/uL 10^3/uL (0.03-0.40) Absolute Basos (auto) 0.02 10^3/uL 10^3/uL (0.02-0.10) Absolute Nucleated RBC 0.00 10^3/uL 10^3/uL (0-0.01) Immature Gran % 0.2 % % (0.0-1.1) Immature Gran # 0.01 10^3/uL 10^3/uL (0.00-0.10) Sodium 142 mEq/L mEq/L (135-145) Potassium 4.0 mEq/L mEq/L (3.5-5.2) Chloride 100 mEq/L mEq/L (97-110) Carbon Dioxide 23 mEq/l mEq/l (22-31) Anion Gap 19 mEq/L H mEq/L (8-16) BUN 12 mg/dL mg/dL (7-23) Creatinine 0.9 mg/dL mg/dL (0.7-1.3) Estimated GFR > 60 Glucose 126 mg/dL H mg/dL (70-100) Calcium 10.8 mg/dL H mg/dL (8.5-10.4) Phosphorus 2.3 mg/dL L mg/dL (2.5-4.5) Urine Opiates Screen NEGATIVE (NEGATIVE) Urine Barbiturates NEGATIVE (NEGATIVE) Ur Phencyclidine Scrn NEGATIVE (NEGATIVE) Ur Amphetamine Screen NEGATIVE (NEGATIVE) U Benzodiazepines Scrn NEGATIVE (NEGATIVE) Urine Cocaine Screen NEGATIVE (NEGATIVE) U Marijuana (THC) Screen NEGATIVE (NEGATIVE) Ethyl Alcohol < 10 mg/dL mg/dL (0-10) Medications Given: Discontinued Medications Gabapentin (Neurontin) 600 mg PO EDNOW ONE Stop: 04/12/17 02:14 Last Admin: 04/12/17 02:37 Dose: 600 mg Olanzapine (Olanzapine) 10 mg PO ONCE ONE Stop: 04/12/17 00:29 Last Admin: 04/12/17 00:38 Dose: 10 mg Quetiapine Fumarate (Seroquel) 100 mg PO EDNOW ONE Stop: 04/12/17 02:20 Last Admin: 04/12/17 02:37 Dose: 100 mg Zolpidem Tartrate (Ambien) 10 mg PO ONCE ONE Stop: 04/12/17 02:20 Last Admin: 04/12/17 02:37 Dose: 10 mg Departure - Departure Disposition: Home, Routine, Self-Care Clinical Impression: Methamphetamine abuse Condition: Good Instructions: Methamphetamine Abuse (ED) Referrals: NONE *[facility]IMARY [facility] P,. [Primary Care Provider] - As per Instructions
[2017-04-11 23:55] VITALS: BP 174/106; PULSE 121; RESP 18; TEMP 97.5; O2SAT 97
[2017-04-12 00:28] LABS: PLATELET COUNT 338 10^3/uL (150-400)
[2017-04-12] MEDS ORDERED: OLANZapine 5 MG TAB PO ONE (00:28)
[2017-04-12] MEDS ORDERED: GABAPENTIN 300 MG CAP PO ONE (02:13)
[2017-04-12] MEDS ORDERED: QUEtiapine FUMARATE 200 MG TAB PO ONE (02:19)
[2017-04-12] MEDS ORDERED: ZOLPIDEM TARTRATE 5 MG TAB PO ONE (02:19)
== END 2017-04-12 02:58 | disposition home or self-care (01) ==
LOC: EEVIPCON 23:25
DX: F15.10 Other stimulant abuse, uncomplicated (principal); F17.200 Nicotine dependence, unspecified, uncomplicated
CPT/HCPCS: 80305; G0480

== ENCOUNTER 2017-04-12 05:55 | Emergency (ER) | payer MEDICAID ==
--- NOTE | 2017-04-12 06:14 | EDPHY ---
H & P Stated Complaint: [facility] Source: Patient - Personal History Current Tetanus/Diphtheria Vaccine: Yes Current Tetanus Diphtheria and Acellular Pertussis (TDAP): Yes Tetanus Vaccine Date: < 10 YEARS - Medical/Surgical History Hx Asthma: No Hx Chronic Respiratory Disease: No Hx Diabetes: No Hx Cardiac Disease: No Hx Renal Disease: No Hx Cirrhosis: No Hx Alcoholism: No Hx HIV/AIDS: No Hx Splenectomy or Spleen Trauma: No Other PMH: HEROIN ADDICTION, SCHIZO-AFFECTIVE, BIPOLAR, ANIETY, ARTHRITIS, MAJOR DEPRESSIVE DISORDER, Meth use - Social History Smoking Status: Current every day smoker HPI/ROS: HPI CHIEF COMPLAINT: Placed on M1 hold by [facility]. HISTORY OF PRESENT ILLNESS: Patient 36-year-old male, history of polysubstance abuse and schizoaffective disorder, presents emergency room by EMS on M1 hold. He was recently here and had blood work. He was evaluated has M1 hold lifted and sent to detox. He now presents back. He told the staff at the [facility], that he has thoughts now that of suicidal ideation. Past Medical History: Schizoaffective disorder, polysubstance abuse, methamphetamine abuse Past Surgical History: No recent surgery Social History: Polysubstance abuse. Family History: Noncontributory ROS REVIEW OF SYSTEMS: A comprehensive 10 point review of systems is otherwise negative aside from elements mentioned in the history of present illness. Exam Constitutional triage nursing summary reviewed, vital signs reviewed, awake/ alert. Eyes normal conjunctivae and sclera, EOMI, PERRLA. HENT normal inspection, atraumatic, moist mucus membranes, no epistaxis, neck supple/ no meningismus, no raccoon eyes. Respiratory clear to auscultation bilaterally, normal breath sounds, no respiratory distress, no wheezing. Cardiovascular rate normal, regular rhythm, no murmur, no edema, distal pulses normal. Gastrointestinal soft, non-tender, no rebound, no guarding, normal bowel sounds, no distension, no pulsatile mass. Genitourinary no CVA tenderness. Musculoskeletal no midline vertebral tenderness, full range of motion, no calf swelling, no tenderness of extremities, no meningismus, good pulses, neurovascularly intact. Skin pink, warm, & dry, no rash, skin atraumatic. Neurologic awake, alert and oriented x 3, AAOx3, moves all 4 extremities equally, motor intact, sensory intact, CN II-XII intact, normal cerebellar, normal vision, normal speech. Psychiatric normal mood/affect. Heme/Lymph/Immune no lymphadenopathy. Differential Diagnosis: Includes but is not limited to in a particular order, schizoaffective disorder, bipolar disorder, mood disorder, depression, suicidal ideation, anxiety, malingering, methamphetamine abuse, polysubstance abuse. Medical Decision Making: Plan for this patient he is on M1 hold. Will have him re-evaluated. Will not repeat blood work as he just had this. Re-evaluation: 0700: Patient signed over to Dr. Rosario ruiz 7am. Pending Mental Health Eval. ( Faheem Guevara) Constitutional: Initial Vital Signs Temperature (C) 36.5 C 04/12/17 06:00 Heart Rate 102 H 04/12/17 06:00 Blood Pressure 147/108 H 04/12/17 06:00 O2 Sat (%) 97 04/12/17 06:00 O2 Delivery Mode Room Air Allergies/Adverse Reactions: haloperidol [From Haldol] Allergy (Verified 04/01/17 05:53) ibuprofen Allergy (Verified 04/01/17 05:53) Home Medications: Medication Instructions Recorded Suboxone 8 mg-2 mg SL Film 02/01/17 Gabapentin 03/03/17 Seroquel 03/03/17 Sertraline HCl 03/03/17 Medical Decision Making ED Course/Re-evaluation: 7:00 a.m.-I assumed care of this patient at shift change. He has a history of schizoaffective disorder and methamphetamine abuse. He was evaluated in this emergency department yesterday and had a mental health evaluation. He was discharged to the [facility], where he complained of suicidal ideation. The plan is for him to have a mental health evaluation this morning. He complains of significant anxiety and appears to be hallucinating. Ativan 1 mg orally given. After the Ativan, he continued to have significant anxiety, so Zyprexa and a repeat dose of Ativan orally given. Repeat tox screen today is positive for methamphetamine and cocaine. He will need to wait 12 hrs for mental health evaluation, given positive tox screen for methamphetamine. 3pm: signed over to Dr. Taylor at shift change. (Grace Ruiz) Differential Diagnosis: Differential diagnosis includes though it is not limited to suicidal ideation, overdose, acute psychosis, self-injury, alcohol withdrawal. (Grace Ruiz) Other Provider: 1920: Mental health worker has evaluated patient and plans to discharge him with bus tickets and outpatient resources for follow up. They will break the hold. (Florencio Taylor) - Data Points Laboratory Results: 04/12/17 09:51 Urine Opiates Screen NEGATIVE (NEGATIVE) Urine Barbiturates NEGATIVE (NEGATIVE) Ur Phencyclidine Scrn NEGATIVE (NEGATIVE) Ur Amphetamine Screen NON-NEGATIVE H (NEGATIVE) U Benzodiazepines Scrn NEGATIVE (NEGATIVE) Urine Cocaine Screen NON-NEGATIVE H (NEGATIVE) U Marijuana (THC) Screen NEGATIVE (NEGATIVE) Medications Given: Discontinued Medications Lorazepam (Ativan) 1 mg PO EDNOW ONE Stop: 04/12/17 08:25 Last Admin: 04/12/17 08:26 Dose: 1 mg Lorazepam (Ativan) 1 mg PO EDNOW ONE Stop: 04/12/17 13:31 Last Admin: 04/12/17 13:33 Dose: 1 mg Olanzapine (Zyprexa Zydis) 10 mg PO EDNOW ONE Stop: 04/12/17 10:42 Last Admin: 04/12/17 10:47 Dose: 10 mg Departure - Departure Clinical Impression: Suicidal ideation, Polysubstance abuse Schizoaffective disorder Qualifiers: Schizoaffective disorder type: unspecified Qualified Code(s): F25.9 - Schizoaffective disorder, unspecified Condition: Good Instructions: Polysubstance Abuse (ED), Suicide Prevention for Adults (ED) Additional Instructions: 1. Avoid abuse of illicit drugs and alcohol. 2. Follow up with the mental health resources provided. 3. Return to the ED for worsening of condition. Referrals: [facility] [Clinic] - As per Instructions
[2017-04-12] MEDS ORDERED: LORazepam 1 MG TAB PO ONE ×2 (08:24→13:30)
[2017-04-12] MEDS ORDERED: GABAPENTIN 300 MG CAP PO ONE (08:25)
[2017-04-12] MEDS ORDERED: OLANZapine DISINTEGR 10 MG TAB PO ONE (10:41)
[2017-04-12 19:31] VITALS: BP 125/74; PULSE 75; RESP 16; TEMP 98.1; O2SAT 96
== END 2017-04-12 19:34 | disposition home or self-care (01) ==
LOC: EDUNIT#
DX: R45.851 Suicidal ideations (principal); F25.9 Schizoaffective disorder, unspecified; F14.10 Cocaine abuse, uncomplicated; F15.10 Other stimulant abuse, uncomplicated; F17.200 Nicotine dependence, unspecified, uncomplicated
CPT/HCPCS: 80305

== ENCOUNTER 2017-04-15 07:01 | Emergency (ER) | payer MEDICAID ==
--- NOTE | 2017-04-15 07:06 | EDPHY ---
HPI/HX/ROS/PE/MDM Narrative: CHIEF COMPLAINT: Toothache, flu-like symptoms. HPI: This patient is a homeless 36 year old male with history of depression and schizoaffective disorder arriving via EMS for evaluation of tooth pain and flu- like symptoms. He is well known to this emergency department with seven prior visits this year. He complains of body aches, congestion, and weakness, stating "I don't even want to walk, man". [facility] friends [facility] encouraged him to come in to the emergency department for evaluation. Additionally, he complains of pain to his upper left premolar. This has been intermittent over the last three months. No chest pain, shortness of breath, vomiting, diarrhea, or other associated symptoms. REVIEW OF SYSTEMS: Aside from elements discussed in the HPI, a comprehensive 10-point review of systems was reviewed and is negative. PMH: Depression, Schizoaffective disorder (Zoloft, Seroquel, Ambien), Polysubstance abuse, Methamphetamine abuse SOCIAL HISTORY: Homeless, [facility] the [facility]. Unemployed. Daily tobacco use. PHYSICAL EXAM: General:Patient is alert, in no acute distress. ENT:Eyes are normal to inspection. ENT inspection normal. Neck: Normal inspection. Full range of motion. Respiratory:No respiratory distress. Breath sounds normal bilaterally. Cardiovascular: Regular rate and rhythm. Strong peripheral pulses. Normal cap refill. Skin: Normal color. No rash. Warm and dry. Neuro: Oriented x3. Normal motor function. Normal sensory function. ED Course: 36 y/o male presents with URI symptoms and toothache. Exam unremarkable, mouth appears normal. The patient is febrile at 37.9. Patient has an allergy to ibuprofen, plan to administer 650mg PO Tylenol. Plan for flu swab. Patient refuses flu swab. He states he did not want to come to the hospital. Plan to discharge home in good condition. Referrals to [facility] and [facility] given. He is comfortable with this plan. - Data Points Medications Given: Discontinued Medications Acetaminophen (Tylenol) 650 mg PO EDNOW ONE Stop: 04/15/17 07:10 Last Admin: 04/15/17 07:12 Dose: 650 mg General Initial Vital Signs: Initial Vital Signs Temperature (C) 37.9 C 04/15/17 07:01 Heart Rate 100 04/15/17 07:01 Respiratory Rate 16 04/15/17 07:01 Blood Pressure 120/80 04/15/17 07:01 O2 Sat (%) 98 04/15/17 07:01 O2 Delivery Mode Room Air Allergies/Adverse Reactions: haloperidol [From Haldol] Allergy (Verified 04/01/17 05:53) ibuprofen Allergy (Verified 04/01/17 05:53) Home Medications: Medication Instructions Recorded Suboxone 8 mg-2 mg SL Film 02/01/17 Gabapentin 03/03/17 Seroquel 03/03/17 Sertraline HCl 03/03/17 Departure - Departure Disposition: Home, Routine, Self-Care Clinical Impression: Toothache, Viral syndrome Condition: Good Instructions: Viral Syndrome (ED), Toothache (ED) Additional Instructions: 1. Follow up with [facility] for further evaluation of your toothache. 2. Stay well hydrated, rest. Take Tylenol 650mg every 4-6 hours as needed for fever and body aches. 3. Return for severe fever or other worsening of condition. The [facility] has walk-in appointments for the homeless at the following days/locations. No appointment is needed. Monday 8-10am @ [facility] 11AM-1PM @ [facility] Monday 8-10:30AM @ [facility] Monday 8-10 AM @ [facility] 2-4PM @ [facility] Monday 8-10AM @ [facility] Referrals: [facility] [Outside] - As per Instructions [facility],. [Clinic] - As per Instructions Report Scribed for: Florencio Taylor Report Scribed by: Tamiko House Date of Report: 04/15/17 Time of Report: 07:28 Physician Review and Approval Statement: Portions of this note were transcribed by an ED scribe. I personally performed the history, physical exam, and medical decision making; and confirm the accuracy of the information in the transcribed note.
[2017-04-15 07:09] VITALS: BP 120/80; PULSE 100; RESP 16; TEMP 100.2; O2SAT 98
[2017-04-15] MEDS ORDERED: ACETAMINOPHEN 325 MG TAB PO ONE (07:09)
== END 2017-04-15 07:55 | disposition home or self-care (01) ==
LOC: EDUNIT#
DX: K08.89 Other specified disorders of teeth and supporting structures (principal); B34.9 Viral infection, unspecified; F17.200 Nicotine dependence, unspecified, uncomplicated

== ENCOUNTER 2017-04-16 07:18 | Emergency (ER) | payer MEDICAID ==
[2017-04-16 07:26] VITALS: RESP 16
[2017-04-16] MEDS ORDERED: ACETAMINOPHEN 325 MG TAB ONE (07:37)
[2017-04-16] MEDS ORDERED: IBUPROFEN 600 MG TAB PO ONE (07:37)
[2017-04-16] MEDS ORDERED: ACETAMINOPHEN 325 MG TAB PO ONE (07:38)
--- NOTE | 2017-04-16 07:57 | EDPHY ---
H & P Stated Complaint: nausea Time Seen by Provider: 04/16/17 07:44 HPI/ROS: CHIEF COMPLAINT: I am sick, complaining of headache and fatigue HISTORY OF PRESENT ILLNESS: This is a 36-year-old male with a history of depression and schizoaffective disorder who is here for the 9th time this year. He was seen yesterday with complaints of a flu-like illness and toothache. He was offered flu testing but declined. He was treated with antipyretics for recorded temperature of 37.9 degrees. He was referred to [facility] for primary care and to dental aid for his toothache. He returns today by ambulance complaining of headache, mild sore throat, and fatigue. He is not complaining of toothache. He had 1 bout of diarrhea this morning. He he has had mild nausea but no vomiting. He has not been aware of fever, but does not have a thermometer. He denies neck pain, visual changes, confusion, numbness, or weakness. The headache is a dull aching sensation, not the worse of his life or sudden in onset. [facility]. He has not taken anything for headache. REVIEW OF SYSTEMS: A ten point review of systems was performed and is negative with the exception of the items mentioned in the HPI. Past medical history: Depression and schizoaffective disorder Polysubstance abuse, IV drug abuse Past surgical history: Noncontributory Social history: He is living at the [facility]. He tells me that he does not smoke cigarettes. He states that he has not used any illicits drugs for the past month. He has a history of IV drug abuse in the past. General Appearance: Alert. Vital signs reviewed. Heart rate 104, blood pressure 129/86 at triage. Eyes: Pupils equal and round, no conjunctival injection, no discharge. Anicteric. ENT, Mouth: Mucous membranes are slightly dry, no oropharyngeal erythema or edema. Neck: Mild anterior cervical lymphadenopathy, supple. No meningeal signs Respiratory: Lungs are clear to auscultation; no wheezes, rales, or rhonchi. Cardiovascular: Regular rate and rhythm; no murmur, rub, or gallop. Not tachycardic at the time of my exam. Gastrointestinal: Abdomen is soft and nontender, no masses or organomegaly, bowel sounds normal. Skin: Warm and dry, no rashes on exposed skin, normal color. Back: Nontender to palpation over the thoracolumbar spine. No CVAT. Extremities: No lower extremity edema, no calf tenderness or swelling. Neurological: Alert and oriented. Moving all four extremities easily and equally. ROSALBA. EOMI. Facial expressions symmetric. Tongue midline. Psychiatric: Flat affect. - Personal History Tetanus Vaccine Date: < 10 YEARS - Medical/Surgical History Hx Asthma: No Hx Chronic Respiratory Disease: No Hx Diabetes: No Hx Cardiac Disease: No Hx Renal Disease: No Hx Cirrhosis: No Hx Alcoholism: No Hx HIV/AIDS: No Hx Splenectomy or Spleen Trauma: No Other PMH: HEROIN ADDICTION, SCHIZO-AFFECTIVE, BIPOLAR, ANIETY, ARTHRITIS, MAJOR DEPRESSIVE DISORDER, Meth use - Social History Smoking Status: Current every day smoker Constitutional: Initial Vital Signs Temperature (C) 36.6 C 04/16/17 07:23 Heart Rate 104 H 04/16/17 07:23 Respiratory Rate 16 04/16/17 07:23 Blood Pressure 129/86 H 04/16/17 07:23 O2 Sat (%) 95 04/16/17 07:23 O2 Delivery Mode Room Air Allergies/Adverse Reactions: haloperidol [From Haldol] Allergy (Verified 04/01/17 05:53) ibuprofen Allergy (Verified 04/01/17 05:53) Home Medications: Medication Instructions Recorded Suboxone 8 mg-2 mg SL Film 02/01/17 Gabapentin 03/03/17 Seroquel 03/03/17 Sertraline HCl 03/03/17 Medical Decision Making ED Course/Re-evaluation: I suspect a viral illness in this 36-year-old homeless male with a history of depression and schizoaffective disorder. He did not make any follow-up arrangements yesterday. He has not taken any medication to treat his headache. He has a normal neurologic exam in the emergency department and I do not suspect meningitis. He has no history of migraine and this does not sound like a migraine headache.His abdomen is soft and nontender and although he had a bout of diarrhea he has not had vomiting and I do not think that he has gastroenteritis. Will watch him to see if he has any further diarrhea in the ED. Was given a dose of Tylenol to treat his headache. He has an ibuprofen allergy. 8:00 a.m.: Sleeping soundly. Patient was allowed to sleep and was given juice and water. He was improved upon awakening and was discharged. I think that he has a viral syndrome and do not recommend further work up or treatment in the ED. He is again given a listing of the walk-in hours for appointment at [facility]. - Data Points Medications Given: Discontinued Medications Acetaminophen (Tylenol) 650 mg PO EDNOW ONE Stop: 04/16/17 07:39 Last Admin: 04/16/17 07:39 Dose: 650 mg Departure - Departure Disposition: Home, Routine, Self-Care Clinical Impression: Viral syndrome Condition: Good Instructions: Viral Syndrome (ED) Additional Instructions: [facility] has walk in appointments for the homeless. You were given a list of these hours and days yesterday and I will provide this list again for you today. You do not need an appointment. I recommend that you be seen by them tomorrow to establish care. You were also referred to dental aid yesterday and I recommend that you contact them if you have continued problems with your teeth. I think that you have a viral illness. Rest and hydration are important. Tylenol will treat fever, headache, and body aches. You should take 650 mg of Tylenol every 4-6 hours as needed for fever, headache, or body aches. Drink lots of water. Referrals: [facility],. [Clinic] - As per Instructions
[2017-04-16 09:40] VITALS: BP 113/87; PULSE 92; TEMP 98.2; O2SAT 98
--- NOTE | 2017-04-16 17:46 | ASDISCHSUM ---
Discharge Information Plan Status:Home with No Needs Medically Cleared to Leave: Discharge Date:04/16/2017 09:38 AM CM D/C Disposition:Home, Routine, Self-Care ADT D/C Disposition:Home, Routine, Self-Care Projected Discharge Date:04/16/2017 09:38 AM Transportation at D/C:None or Unknown Discharge Delay Reason: Follow-Up Date:04/16/2017 09:38 AM Discharge Slot: Final Diagnosis: Placement Information Patient Contact Information Contact Name:LEINJAKOB Relationship: Address: Home Phone: Work Phone: City: Alternate Phone: State/[place] Code: Email: Financial Information Financial Class: Primary Plan Desc:[employer] Primary Plan Number:[id number] Secondary Plan Desc: Secondary Plan Number: Assessment Information LACE LACE Acuity / Level of Answers: No Care: Did the patient have an inpatient admission? # of Emergency department Answers: 9-12 visits in the last 6 months Social determinants Answers: History of substance abuse (ETHO, street drugs, prescription drugs, etc.) Homelessness (street, correction) Mental health diagnosis (anxiety, depression, pers onality disorders, etc.) Lack of community resources and/or lack of social support (no pcp, lives alone, transportation, artemio d) Score: 18 Date Signed: 04/16/2017 05:45 PM Electronically Signed By:Kateryna Pearce RN Intervention Information
== END 2017-04-16 09:38 | disposition home or self-care (01) ==
LOC: EDUNIT#
DX: B34.9 Viral infection, unspecified (principal); F17.200 Nicotine dependence, unspecified, uncomplicated

== ENCOUNTER 2017-04-21 23:54 | Emergency (ER) | payer MEDICAID ==
[2017-04-22 00:01] VITALS: TEMP 97.5
--- NOTE | 2017-04-22 00:13 | EDPHY ---
H & P Stated Complaint: pt didnt fill his suboxone today, wants iv fluids Time Seen by Provider: 04/21/17 23:58 HPI/ROS: Chief Complaint: Narcotic withdrawal HPI: 36-year-old male with a history of chronic narcotic abuse who is on Suboxone. Patient went to his doctor's appointment earlier today in [place] and got prescription for Suboxone but did not get it filled. He did not get back to [place] and tell 8 o'clock tonight when all the pharmacies were closed. He is complaining of body pain and some mild nausea. He has not been vomiting. No headache. No fevers or chills. He has been drinking fluids. ROS: 10 point Review of Systems is negative except as noted in the HPI. PMH: Schizoaffective disorder, chronic opioid abuse Social History: No smoking, no alcohol, no recreational drug use Family History: non-contributory Physical Exam: Gen: Awake, Alert, No Distress HEENT: Nose: no rhinorrhea Eyes: PERRLA, EOMI Mouth: Moist mucosa Neck: Supple, no JVD Chest: nontender, lungs clear to auscultation Heart: S1, S2 normal, no murmur Abd: Soft, non-tender, no guarding Back: no CVA tenderness, no midline tenderness Ext: no edema, non-tender Skin: no rash Neuro: CN II-XII intact, Sensation grossly intact, Strength 5/5 in bilateral upper and lower extremities - Personal History Current Tetanus Diphtheria and Acellular Pertussis (TDAP): Unsure Tetanus Vaccine Date: < 10 YEARS - Medical/Surgical History Hx Asthma: No Hx Chronic Respiratory Disease: No Hx Diabetes: No Hx Cardiac Disease: No Hx Renal Disease: No Hx Cirrhosis: No Hx Alcoholism: Yes Hx HIV/AIDS: No Hx Splenectomy or Spleen Trauma: No Other PMH: HEROIN ADDICTION, SCHIZO-AFFECTIVE, BIPOLAR, ANIETY, ARTHRITIS, MAJOR DEPRESSIVE DISORDER, Meth use - Social History Smoking Status: Former smoker Constitutional: Initial Vital Signs Temperature (C) 36.4 C 04/21/17 23:58 Heart Rate 110 H 04/21/17 23:58 Respiratory Rate 16 04/21/17 23:58 Blood Pressure 152/99 H 04/21/17 23:58 O2 Sat (%) 99 04/21/17 23:58 O2 Delivery Mode Room Air Allergies/Adverse Reactions: haloperidol [From Haldol] Allergy (Verified 04/01/17 05:53) ibuprofen Allergy (Verified 04/01/17 05:53) Home Medications: Medication Instructions Recorded Suboxone 8 mg-2 mg SL Film 02/01/17 Gabapentin 03/03/17 Seroquel 03/03/17 Sertraline HCl 03/03/17 Ambien 04/21/17 Wellbutrin 150mg SR (*) 04/21/17 Zoloft 100mg (*) 04/21/17 Medical Decision Making ED Course/Re-evaluation: 36-year-old male who ran out of his Suboxone was unable to get it filled today. He has tolerating p. o.. He is well known to this department. Will give him a single dose of clonidine. He has a prescription and can get his Suboxone filled tomorrow. Departure - Departure Disposition: Home, Routine, Self-Care Clinical Impression: Opioid withdrawal Condition: Good Instructions: Opioid Withdrawal (ED) Additional Instructions: Make sure to get your prescription filled tomorrow morning. Return to the emergency department for uncontrolled vomiting, fevers, chills, or any other concerns. Referrals: [facility],. [Clinic] - As per Instructions
[2017-04-22 00:26] VITALS: BP 147/111; PULSE 88; RESP 18; O2SAT 95
== END 2017-04-22 00:28 | disposition home or self-care (01) ==
LOC: EDUNIT#
DX: F11.23 Opioid dependence with withdrawal (principal); Z87.891 Personal history of nicotine dependence

== ENCOUNTER 2017-04-22 10:51 | Emergency (ER) | payer MEDICAID ==
--- NOTE | 2017-04-22 10:57 | EDPHY ---
H & P Time Seen by Provider: 04/22/17 10:56 HPI/ROS: CHIEF COMPLAINT: Paranoid delusional HISTORY OF PRESENT ILLNESS: Patient was seen earlier today because he ran out of his Suboxone but he was able to get it refilled. Patient called 911 because he was paranoid that people are following him but on arrival he denies suicidal or homicidal ideation. He says he has been doing methamphetamine today and thinks that is why he was paranoid. Denies any medical complaints. REVIEW OF SYSTEMS: Eye: no change in vision ENT: no sore throat Cardiac: no chest pain or syncope Pulmonary: no cough or SOB Abdomen: no vomiting, diarrhea, abdominal pain Musculoskeletal: no back pain Skin: no rash Neuro: no headache Constitutional: no fever : no urinary symptoms A comprehensive 10 point review of systems is otherwise negative aside from elements mentioned in the history of present illness. PAST MEDICAL HISTORY: Previous ED visit stating to 04/22/17 as well as 04/16 and . Schizoaffective disorder and opioid addiction. Social history: No alcohol, recent methamphetamine General Appearance: Alert and conversant, cooperative. Eyes: No scleral icterus. ENT, Mouth: Normal mucous membranes. Respiratory: Normal respiratory effort, breath sounds equal, lungs are clear to auscultation. Cardiovascular: Regular rate and rhythm. Gastrointestinal: Abdomen is soft and non tender. Neurological: Alert, face symmetric, normal motor and sensory in extremities. Ambulatory without ataxia, negative Romberg. Skin: Warm and dry, no rashes. Musculoskeletal: No extremity deformity or tenderness, normal range of motion of the neck. Psychiatric: Slightly agitated, but able to hold a logical and consistent conversation with myself. Emergency Department course/MDM: Patient arrives on a mental health hold by the police for psychosis and delusional, but he is able to hold a conversation with myself and I think is self admitted methamphetamine use in addition to his schizoaffective history would explain his symptoms. On my evaluation he does not appear to be gravely disabled or a danger to himself or others. He wants to go and be released and go to the nursing home tonight which I think is reasonable. Smoking Status: Former smoker Constitutional: Initial Vital Signs Temperature (C) 36.6 C 04/22/17 10:51 Heart Rate 100 04/22/17 10:51 Respiratory Rate 16 04/22/17 10:51 Blood Pressure 156/102 H 04/22/17 10:51 O2 Sat (%) 98 04/22/17 10:51 O2 Delivery Mode Room Air Allergies/Adverse Reactions: haloperidol [From Haldol] Allergy (Verified 04/01/17 05:53) ibuprofen Allergy (Verified 04/01/17 05:53) Home Medications: Medication Instructions Recorded Suboxone 8 mg-2 mg SL Film 02/01/17 Gabapentin 03/03/17 Seroquel 03/03/17 Sertraline HCl 03/03/17 Ambien 04/21/17 Wellbutrin 150mg SR (*) 04/21/17 Zoloft 100mg (*) 04/21/17 Departure - Departure Disposition: Home, Routine, Self-Care Clinical Impression: Methamphetamine abuse Schizoaffective disorder Qualifiers: Schizoaffective disorder type: unspecified Qualified Code(s): F25.9 - Schizoaffective disorder, unspecified Condition: Good Instructions: Schizoaffective Disorder (ED), Methamphetamine Abuse (ED) Referrals: [facility],. [Clinic] - As per Instructions
[2017-04-22 11:21] VITALS: BP 156/102; PULSE 100; RESP 16; TEMP 97.9; O2SAT 98
== END 2017-04-22 11:35 | disposition home or self-care (01) ==
LOC: EDUNIT#
DX: F15.10 Other stimulant abuse, uncomplicated (principal); F25.9 Schizoaffective disorder, unspecified; Z87.891 Personal history of nicotine dependence

== ENCOUNTER 2017-05-01 22:37 | Emergency (ER) | payer MEDICAID ==
[2017-05-01 22:43] VITALS: BP 151/104; PULSE 130; RESP 16; O2SAT 98
--- NOTE | 2017-05-01 22:44 | EDPHY ---
H & P Time Seen by Provider: 05/01/17 22:42 HPI/ROS: Chief Complaint: Anxiety HPI: 37-year-old male well known to myself in this emergency department who has a history of anxiety. Patient is currently homeless. He was [facility] this [facility] when he became increasingly anxious. He states that this is due to the snow and an argument that he had with his significant other. Patient states that staff became concerned. He asked for some time 2 just uses breathing exercising calm down but they called 911. Patient states his anxiety is about a 7/10. He denies any drug use. He has been compliant with his medications which include Seroquel, Zoloft, and Ambien. He denies depression or suicidal ideation. He would just like to have an opportunity to calm down. He is not asking for any medications at this time. Is also complaining of a rash in his trunk and back of his neck for the last several days. He has had some recent viral upper respiratory symptoms. No fevers or chills. No abdominal pain. No nausea or vomiting. ROS: 10 point Review of Systems is negative except as noted in the HPI. PMH: Anxiety, hepatitis-C Social History: No smoking, no alcohol, no recreational drug use Family History: non-contributory Physical Exam: Gen: Awake, Alert, No Distress, moderately anxious appearing HEENT: Nose: no rhinorrhea Eyes: PERRLA, EOMI Mouth: Moist mucosa Neck: Supple, no JVD Chest: nontender, lungs clear to auscultation Heart: S1, S2 normal, no murmur Abd: Soft, non-tender, no guarding Back: no CVA tenderness, no midline tenderness Ext: no edema, non-tender Skin: Generalized macular rash in his trunk and neck, it is blanching, appearance of a viral exanthem, is pruritic Neuro: CN II-XII intact, Sensation grossly intact, Strength 5/5 in bilateral upper and lower extremities - Personal History Tetanus Vaccine Date: < 10 YEARS - Medical/Surgical History Hx Asthma: No Hx Chronic Respiratory Disease: No Hx Diabetes: No Hx Cardiac Disease: No Hx Renal Disease: No Hx Cirrhosis: No Hx Alcoholism: Yes Hx HIV/AIDS: No Hx Splenectomy or Spleen Trauma: No Other PMH: HEROIN ADDICTION, SCHIZO-AFFECTIVE, BIPOLAR, ANIETY, ARTHRITIS, MAJOR DEPRESSIVE DISORDER, Meth use - Social History Smoking Status: Former smoker Constitutional: Initial Vital Signs Heart Rate 130 H 05/01/17 22:39 Respiratory Rate 16 05/01/17 22:39 Blood Pressure 151/104 H 05/01/17 22:39 O2 Sat (%) 98 05/01/17 22:39 O2 Delivery Mode Room Air Allergies/Adverse Reactions: haloperidol [From Haldol] Allergy (Verified 04/01/17 05:53) ibuprofen Allergy (Verified 04/01/17 05:53) Home Medications: Medication Instructions Recorded Suboxone 8 mg-2 mg SL Film 02/01/17 Gabapentin 03/03/17 Seroquel 03/03/17 Sertraline HCl 03/03/17 Ambien 04/21/17 Wellbutrin 150mg SR (*) 04/21/17 Zoloft 100mg (*) 04/21/17 Medical Decision Making ED Course/Re-evaluation: Patient is improved after some oral Benadryl. He has come down. His itching is improved. No evidence of acute infectious process. Will discharge with follow up with [facility]. - Data Points Medications Given: Discontinued Medications Diphenhydramine HCl (Benadryl) 50 mg PO EDNOW ONE Stop: 05/01/17 23:01 Last Admin: 05/01/17 23:01 Dose: 50 mg Departure - Departure Disposition: Home, Routine, Self-Care Clinical Impression: Anxiety Condition: Good Instructions: Anxiety (ED) Additional Instructions: Continue taking your anxiety medications as prescribed. May take Benadryl as needed for itch. Use your calming exercises when you find herself becoming more anxious. Follow up with [facility] in 3-4 days for worsening anxiety, depression, thoughts of harming herself or others, or any other concerns. Referrals: [facility],. [Clinic] - As per Instructions [facility],. [Clinic] - As per Instructions
[2017-05-01] MEDS ORDERED: diphenhydrAMINE 25 MG CAP PO ONE ×2 (22:59→23:00)
== END 2017-05-01 23:31 | disposition home or self-care (01) ==
LOC: EDUNIT#
DX: F41.9 Anxiety disorder, unspecified (principal); Z87.891 Personal history of nicotine dependence

== ENCOUNTER 2017-05-02 18:53 | Emergency (ER) | payer MEDICAID ==
[2017-05-02 19:01] VITALS: RESP 16
--- NOTE | 2017-05-02 19:50 | EDPHY ---
H & P Smoking Status: Former smoker Time Seen by Provider: 05/02/17 19:02 HPI/ROS: CHIEF COMPLAINT: Chronic neck and back pain HISTORY OF PRESENT ILLNESS: 37-year-old homeless male presents to the emergency department complaining of ongoing chronic neck and back pain. He has a history of chronic neck and back pain that comes and goes for years. He denies numbness or tingling in his fingers or toes. Denies feelings of weakness in his lower legs. No bowel or bladder incontinence. The patient has a history of schizoaffective disorder however stopped his Seroquel few months ago. He has been increasingly paranoid. He is not suicidal or homicidal. He does admit to using methamphetamines, last use was last night. Prior to that he abused heroin and is currently on Suboxone for this. Patient is a former alcoholic. He has a history of chronic neck and back pain. He does not take anything for the pain. He denies any reported trauma. He has been to the addiction recovery Center in the past. He has been hospitalized for mental illness in the past. Patient states that he is not suicidal homicidal. He does want to get sober. He is open to going to the diction recovery Center and speaking with mental health. REVIEW OF SYSTEMS: Constitutional: No fever, no chills. Eyes: No double or blurry vision. ENT: No sore throat. Respiratory: No cough, no shortness of breath. Cardiac: No chest pain. Gastrointestinal: No abdominal pain, vomiting or diarrhea. Genitourinary: No dysuria. Musculoskeletal: Chronic neck and back pain "for years" Skin: No rashes. Neurological: No headache. (Janelle Barretoa M) Past Medical/Surgical History: Schizoaffective disorder, substance abuse (Estevan,Amie M) Social History: Homeless from [place] (Estevan,Amie M) Physical Exam: General Appearance: Alert, no distress. Eyes: Pupils equal and round. Extraocular motions are all intact. Conjunctival injection noted bilaterally. ENT: Mouth: Mucous membranes moist. Respiratory: No wheezing, rhonchi, or rales, lungs are clear to auscultation. Cardiovascular: Regular rate and rhythm. Gastrointestinal: Abdomen is soft and nontender, no masses, no rebound or guarding, bowel sounds normal. Neurological: Alert and oriented x 3, cranial nerves II through XII grossly intact Skin: Warm and dry, no rashes. Musculoskeletal: Nontender to palpate along the cervical, thoracic or lumbar spine. Neck is supple. Extremities: Full range of motion and no peripheral edema. Psychiatric: Patient is oriented X 3, there is no agitation. (Amie Barreto) Constitutional: Initial Vital Signs Temperature (C) 36.5 C 05/02/17 18:57 Heart Rate 88 05/02/17 18:57 Respiratory Rate 16 05/02/17 18:57 Blood Pressure 147/103 H 05/02/17 18:57 O2 Sat (%) 99 05/02/17 18:57 O2 Delivery Mode Room Air Allergies/Adverse Reactions: haloperidol [From Haldol] Allergy (Verified 04/01/17 05:53) ibuprofen Allergy (Verified 04/01/17 05:53) Home Medications: Medication Instructions Recorded Suboxone 8 mg-2 mg SL Film 02/01/17 Gabapentin 03/03/17 Seroquel 03/03/17 Sertraline HCl 03/03/17 Ambien 04/21/17 Wellbutrin 150mg SR (*) 04/21/17 Zoloft 100mg (*) 04/21/17 Medical Decision Making ED Course/Re-evaluation: 37-year-old male presents to the emergency department with a history of schizoaffective disorder. He is not suicidal homicidal. He states he is not having any auditory visual hallucinations. He does have a longstanding history of substance abuse in his last use of methamphetamines was last night. Patient would like to go to the [facility] recovery [facility] at [facility]. He declined speaking with mental health [employer] here in the emergency department. He will be cab to the [facility]. (Amie Barreto) I did not see this patient while he was in the emergency department. However his care was discussed with the PA while the patient was in the department. I agree with treatment plan and management (Ronaldo Estrada) Differential Diagnosis: Including but not limited to substance abuse, depression, suicidal ideation, homicidal ideation, electrolyte abnormality, delusional, mental illness (Amie Barreto) Departure - Departure Disposition: Home, Routine, Self-Care Clinical Impression: Chronic neck pain, Substance abuse, Paranoid behavior Chronic back pain Qualifiers: Back pain location: low back pain Back pain laterality: unspecified Sciatica presence: without sciatica Qualified Code(s): M54.5 - Low back pain Condition: Good Instructions: Chronic Pain (ED), Polysubstance Abuse (ED) Additional Instructions: Go directly to [facility] the addiction recovery Center. Referrals: [facility],. [Clinic] - As per Instructions [facility] [Outside] - As per Instructions
[2017-05-02 20:02] VITALS: BP 162/110; PULSE 100; TEMP 98.1; O2SAT 97
== END 2017-05-02 20:02 | disposition home or self-care (01) ==
LOC: EDUNIT#
DX: M54.2 Cervicalgia (principal); M54.5 Low back pain; G89.29 Other chronic pain; F11.10 Opioid abuse, uncomplicated; F60.0 Paranoid personality disorder; Z87.891 Personal history of nicotine dependence

== ENCOUNTER 2017-05-06 18:03 | Emergency (ER) | payer MEDICAID ==
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
[2017-05-06 18:59] LABS: PLATELET COUNT 344 10^3/uL (150-400)
[2017-05-07] MEDS ORDERED: diphenhydrAMINE 25 MG CAP PO ONE (00:58)
[2017-05-07] MEDS ORDERED: LORazepam 1 MG TAB PO ONE ×2 (00:58→12:46)
[2017-05-07] MEDS ORDERED: OLANZapine DISINTEGR 10 MG TAB ONE (01:48)
[2017-05-07] MEDS ORDERED: OLANZapine DISINTEGR 10 MG TAB PO ONE (01:50)
[2017-05-08 07:49] VITALS: BP 99/56; PULSE 60; RESP 14; TEMP 97.2; O2SAT 99
== END 2017-05-08 08:15 | disposition home or self-care (01) ==
LOC: EDUNIT#
DX: F22 Delusional disorders (principal); F23 Brief psychotic disorder; F25.9 Schizoaffective disorder, unspecified; F19.10 Other psychoactive substance abuse, uncomplicated; Z87.891 Personal history of nicotine dependence
CPT/HCPCS: 80305; G0480

== ENCOUNTER 2017-05-11 23:00 | Emergency (ER) | payer MEDICAID ==
--- NOTE | 2017-05-11 23:04 | EDPHY ---
H & P Time Seen by Provider: 05/11/17 23:02 HPI/ROS: Chief Complaint: Suboxone withdrawal HPI: 37-year-old male with a history of schizophrenia, opioid abuse in the past , on Suboxone. He is well known to myself in this emergency department. Patient is coming in tonight complaining of feeling shaky, diarrhea, abdominal pain consistent with opioid withdrawal. Patient states he ran out of his Suboxone yesterday. No fevers or chills. No cough. He does have an appointment to see his doctor in the morning. No chest pain or shortness of breath. ROS: 10 point Review of Systems is negative except as noted in the HPI. PMH: Schizophrenia, substance abuse Social History: No smoking, no alcohol, no recreational drug use Family History: non-contributory Physical Exam: Gen: Awake, Alert, No Distress HEENT: Nose: no rhinorrhea Eyes: PERRLA, EOMI Mouth: Moist mucosa Neck: Supple, no JVD Chest: nontender, lungs clear to auscultation Heart: S1, S2 normal, no murmur Abd: Soft, non-tender, no guarding Back: no CVA tenderness, no midline tenderness Ext: no edema, non-tender Skin: no rash Neuro: CN II-XII intact, Sensation grossly intact, Strength 5/5 in bilateral upper and lower extremities - Personal History Tetanus Vaccine Date: < 10 YEARS - Medical/Surgical History Hx Asthma: No Hx Chronic Respiratory Disease: No Hx Diabetes: No Hx Cardiac Disease: No Hx Renal Disease: No Hx Cirrhosis: No Hx Alcoholism: Yes Hx HIV/AIDS: No Hx Splenectomy or Spleen Trauma: No Other PMH: HEROIN ADDICTION, SCHIZO-AFFECTIVE, BIPOLAR, ANIETY, ARTHRITIS, MAJOR DEPRESSIVE DISORDER, Meth use - Social History Smoking Status: Former smoker Constitutional: Initial Vital Signs Temperature (C) 36.9 C 05/11/17 23:02 Heart Rate 105 H 05/11/17 23:02 Respiratory Rate 16 05/11/17 23:02 Blood Pressure 141/103 H 05/11/17 23:02 O2 Sat (%) 100 05/11/17 23:02 O2 Delivery Mode Room Air Allergies/Adverse Reactions: haloperidol [From Haldol] Allergy (Verified 04/01/17 05:53) ibuprofen Allergy (Verified 04/01/17 05:53) Home Medications: Medication Instructions Recorded Liya 05/06/17 Gabapentin 05/06/17 Lisinopril 05/06/17 Sertraline HCl [Zoloft 100mg (*)] 05/06/17 Suboxone 12 mg-3 mg Sl Film 05/11/17 Medical Decision Making ED Course/Re-evaluation: Mr. Stearns feeling improved. He has an appoint with his doctor in the morning. Will discharge with follow-up as an outpatient. - Data Points Medications Given: Discontinued Medications Clonidine (Catapres) 0.2 mg PO EDNOW ONE Stop: 05/11/17 23:03 Last Admin: 05/11/17 23:08 Dose: 0.2 mg Departure - Departure Disposition: Home, Routine, Self-Care Clinical Impression: Opioid withdrawal Condition: Good Instructions: Opioid Withdrawal (ED) Additional Instructions: Follow up with your doctor tomorrow morning as scheduled. Return to the emergency department for uncontrolled nausea vomiting, fevers or chills, or any other concerns. Referrals: NONE *PRIMARY CARE P,. [Primary Care Provider] - As per Instructions
[2017-05-12 00:24] VITALS: BP 137/100; PULSE 100; RESP 18; TEMP 97.9; O2SAT 93
== END 2017-05-12 00:24 | disposition home or self-care (01) ==
LOC: EDUNIT#
DX: F11.23 Opioid dependence with withdrawal (principal); Z87.891 Personal history of nicotine dependence

== ENCOUNTER 2017-05-23 20:53 | Emergency (ER) | payer MEDICAID ==
[2017-05-23] MEDS ORDERED: LORazepam 1 MG TAB PO ONE (21:00)
[2017-05-23] MEDS ORDERED: LORazepam 1 MG TAB ONE (21:05)
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
[2017-05-23 21:15] VITALS: BP 141/98; PULSE 118; RESP 20; TEMP 98.2; O2SAT 96
== END 2017-05-23 21:12 | disposition home or self-care (01) ==
LOC: EDUNIT#
DX: F41.9 Anxiety disorder, unspecified (principal); F15.10 Other stimulant abuse, uncomplicated; Z87.891 Personal history of nicotine dependence

== ENCOUNTER 2017-06-07 03:52 | Emergency (ER) | payer MEDICAID, OTHER ==
[2017-06-07] MEDS ORDERED: ONDANSETRON 4 MG/2 ML VIAL IVP ONE (04:00)
[2017-06-07] MEDS ORDERED: NS 1,000 ML IV ONE (04:00)
--- NOTE | 2017-06-07 04:03 | EDPHY ---
H & P Time Seen by Provider: 06/07/17 03:59 HPI/ROS: HPI CHIEF COMPLAINT: Anxiety and nausea HISTORY OF PRESENT ILLNESS: Patient is a 37-year-old male, he has a history of schizophrenia major depressive disorder, additionally polysubstance abuse and homelessness, uses methamphetamine, presents emergency room after call 911 this evening for anxiety and nausea. Patient states he has been suffering from increased anxiety which is causing his nausea act up additionally reports to me that he took THirty 600 mg gabapentin over the past close to 22 hr. Patient reports to me that since 0630 in the morning he has been trying to cope with his anxiety by taking his gabapentin. He thinks he may have taken 30 tabs over last 20 some hours. He endorses anxiety and nausea. No vomiting. Denies chest pain or shortness of breath. Denies abdominal pain. States he feels anxious. Patient denies wanting to hurt himself he denies suicidal ideation or wanting to hurt anybody else. He denies feeling depressed. States he took this to try to control his anxiety. Patient is not sleepy. He is not lethargic. Past Medical History: Schizophrenia, major depressive disorder, polysubstance abuse, homelessness, methamphetamine use, anxiety Past Surgical History: No recent surgery Social History: Homelessness, polysubstance abuse Family History: Noncontributory ROS REVIEW OF SYSTEMS: A comprehensive 10 point review of systems is otherwise negative aside from elements mentioned in the history of present illness. Exam Constitutional appears well nontoxic no acute distress triage nursing summary reviewed, vital signs reviewed, awake/alert. Eyes normal conjunctivae and sclera, EOMI, PERRLA. HENT normal inspection, atraumatic, moist mucus membranes, no epistaxis, neck supple/ no meningismus, no raccoon eyes. Respiratory clear to auscultation bilaterally, normal breath sounds, no respiratory distress, no wheezing. Cardiovascular rate normal, regular rhythm, no murmur, no edema, distal pulses normal. Gastrointestinal soft, non-tender, no rebound, no guarding, normal bowel sounds, no distension, no pulsatile mass. Genitourinary no CVA tenderness. Musculoskeletal no midline vertebral tenderness, full range of motion, no calf swelling, no tenderness of extremities, no meningismus, good pulses, neurovascularly intact. Skin pink, warm, & dry, no rash, skin atraumatic. Neurologic awake, alert and oriented x 3, AAOx3, moves all 4 extremities equally, motor intact, sensory intact, CN II-XII intact, normal cerebellar, normal vision, normal speech. Psychiatric normal mood/affect. Heme/Lymph/Immune no lymphadenopathy. Differential Diagnosis: Includes but is not limited to in a particular order acute anxiety, mood disorder, bipolar disorder, major depressive disorder, schizophrenia, substance abuse, homelessness acute nausea vomiting from dehydration, acute nausea vomiting from electrolyte disturbance, gabapentin overdose Medical Decision Making: Plan for this patient IV establishment IV fluid bolus 1 L normal saline, IV Zofran for nausea, check basic blood work and re-evaluate. Re-evaluation: 0532: Patient is positive for methamphetamine. I did go re-evaluate him at this time he is sleeping. Resting comfortably. I woke him to reassess him and he states that he would like some Ativan for anxiety. However he has been resting comfortably normal vital signs and sleeping. I have declined to give him Ativan as he appears well does not appear anxious. Additionally took a large amount of gabapentin over the past day to controls anxiety. Had a lengthy discussion with him he does not want hurt himself or anybody else he is agreeable on discharge. I do recommend he follows up with his primary care doctor. This time is vital signs are stable he has no complaints resting comfortably and is agreeable for discharge. Source: Patient, EMS - Personal History Tetanus Vaccine Date: < 10 YEARS - Medical/Surgical History Hx Asthma: No Hx Chronic Respiratory Disease: No Hx Diabetes: No Hx Cardiac Disease: No Hx Renal Disease: No Hx Cirrhosis: No Hx Alcoholism: Yes Hx HIV/AIDS: No Hx Splenectomy or Spleen Trauma: No Other PMH: HEROIN ADDICTION, SCHIZO-AFFECTIVE, BIPOLAR, ANIETY, ARTHRITIS, MAJOR DEPRESSIVE DISORDER, Meth use - Social History Smoking Status: Former smoker Constitutional: Initial Vital Signs Temperature (C) 36.7 C 06/07/17 03:59 Heart Rate 97 06/07/17 03:59 Respiratory Rate 18 06/07/17 03:59 Blood Pressure 151/100 H 06/07/17 03:59 O2 Sat (%) 99 06/07/17 03:59 O2 Delivery Mode Room Air Allergies/Adverse Reactions: haloperidol [From Haldol] Allergy (Verified 04/01/17 05:53) ibuprofen Allergy (Verified 04/01/17 05:53) Home Medications: Medication Instructions Recorded Ambien 05/06/17 Gabapentin 05/06/17 Lisinopril 05/06/17 Sertraline HCl [Zoloft 100mg (*)] 05/06/17 Suboxone 12 mg-3 mg Sl Film 05/11/17 Medical Decision Making - Data Points Laboratory Results: Laboratory Results 06/07/17 04:10 06/07/17 04:10 06/07/17 06/07/17 06/07/17 04:25 04:10 04:10 WBC 6.00 10^3/uL 10^3/uL (3.80-9.50) RBC 4.97 10^6/uL 10^6/uL (4.40-6.38) Hgb 13.6 g/dL L g/dL (13.7-17.5) Hct 40.4 % % (40.0-51.0) MCV 81.3 fL L fL (81.5-99.8) MCH 27.4 pg L pg (27.9-34.1) MCHC 33.7 g/dL g/dL (32.4-36.7) RDW 13.3 % % (11.5-15.2) Plt Count 218 10^3/uL 10^3/uL (150-400) MPV 8.9 fL fL (8.7-11.7) Neut % (Auto) 57.4 % % (39.3-74.2) Lymph % (Auto) 32.3 % % (15.0-45.0) Arroyo % (Auto) 7.5 % % (4.5-13.0) Eos % (Auto) 2.0 % % (0.6-7.6) Baso % (Auto) 0.5 % % (0.3-1.7) Nucleat RBC Rel Count 0.0 % % (0.0-0.2) Absolute Neuts (auto) 3.44 10^3/uL 10^3/uL (1.70-6.50) Absolute Lymphs (auto) 1.94 10^3/uL 10^3/uL (1.00-3.00) Absolute Monos (auto) 0.45 10^3/uL 10^3/uL (0.30-0.80) Absolute Eos (auto) 0.12 10^3/uL 10^3/uL (0.03-0.40) Absolute Basos (auto) 0.03 10^3/uL 10^3/uL (0.02-0.10) Absolute Nucleated RBC 0.00 10^3/uL 10^3/uL (0-0.01) Immature Gran % 0.3 % % (0.0-1.1) Immature Gran # 0.02 10^3/uL 10^3/uL (0.00-0.10) Sodium 141 mEq/L mEq/L (135-145) Potassium 4.1 mEq/L mEq/L (3.5-5.2) Chloride 103 mEq/L mEq/L (97-110) Carbon Dioxide 22 mEq/l mEq/l (22-31) Anion Gap 16 mEq/L mEq/L (8-16) BUN 10 mg/dL mg/dL (7-23) Creatinine 0.7 mg/dL mg/dL (0.7-1.3) Estimated GFR > 60 Glucose 92 mg/dL mg/dL (70-100) Calcium 9.4 mg/dL mg/dL (8.5-10.4) Salicylates < 1.0 mg/dL L mg/dL (2.0-20.0) Urine Opiates Screen NEGATIVE (NEGATIVE) Acetaminophen < 10 mcg/mL L mcg/mL (10-30) Urine Barbiturates NEGATIVE (NEGATIVE) Ur Phencyclidine Scrn NEGATIVE (NEGATIVE) Ur Amphetamine Screen NON-NEGATIVE H (NEGATIVE) U Benzodiazepines Scrn NEGATIVE (NEGATIVE) Urine Cocaine Screen NEGATIVE (NEGATIVE) U Marijuana (THC) Screen NON-NEGATIVE H (NEGATIVE) Ethyl Alcohol < 10 mg/dL mg/dL (0-10) Medications Given: Discontinued Medications Sodium Chloride (Ns) 1,000 mls @ 0 mls/hr IV ONCE ONE PRN Reason: Wide Open Stop: 06/07/17 04:01 Last Admin: 06/07/17 04:11 Dose: 1,000 mls Ondansetron HCl (Zofran) 4 mg IVP EDNOW ONE Stop: 06/07/17 04:01 Last Admin: 06/07/17 04:11 Dose: 4 mg Departure - Departure Disposition: Home, Routine, Self-Care Clinical Impression: Anxiety Condition: Good Instructions: Anxiety (ED) Referrals: NONE *PRIMARY CARE P,. [Primary Care Provider] - As per Instructions
[2017-06-07 04:20] LABS: PLATELET COUNT 218 10^3/uL (150-400)
[2017-06-07 05:40] VITALS: BP 134/76
== END 2017-06-07 05:40 | disposition home or self-care (01) ==
LOC: EDUNIT#
DX: F41.9 Anxiety disorder, unspecified (principal); Z87.891 Personal history of nicotine dependence
CPT/HCPCS: 80305; 96374; G0480; J2405

== ENCOUNTER 2017-07-23 23:50 | Emergency (ER) | payer OTHER ==
--- NOTE | 2017-07-23 23:54 | EDPHY ---
H & P Stated Complaint: SI Source: Patient - Personal History Current Tetanus/Diphtheria Vaccine: Unsure Current Tetanus Diphtheria and Acellular Pertussis (TDAP): Unsure Tetanus Vaccine Date: < 10 YEARS - Medical/Surgical History Hx Asthma: No Hx Chronic Respiratory Disease: No Hx Diabetes: No Hx Cardiac Disease: No Hx Renal Disease: No Hx Cirrhosis: No Hx Alcoholism: No Hx HIV/AIDS: No Hx Splenectomy or Spleen Trauma: No Other PMH: Hep C bipolar depressio n - Social History Smoking Status: Never smoked Time Seen by Provider: 07/23/17 23:54 HPI/ROS: HPI CHIEF COMPLAINT: Suicidal ideation, M1 hold by police HISTORY OF PRESENT ILLNESS: Patient is a 37-year-old male, history polysubstance abuse, schizophrenia he reports the emergency room stating he is suicidal. States he is having auditory hallucinations. Came to the emergency room if he is concerned that he may commit suicide. Past Medical History: History of methamphetamine abuse, schizophrenia, major depressive disorder, polysubstance abuse, homeless Past Surgical History: No significant surgical history Social History: Polysubstance abuse. Occasionally homeless. Family History: Noncontributory ROS REVIEW OF SYSTEMS: A comprehensive 10 point review of systems is otherwise negative aside from elements mentioned in the history of present illness. Exam Constitutional nontoxic. triage nursing summary reviewed, vital signs reviewed , awake/alert. Eyes normal conjunctivae and sclera, EOMI, PERRLA. HENT normal inspection, atraumatic, moist mucus membranes, no epistaxis, neck supple/ no meningismus, no raccoon eyes. Respiratory clear to auscultation bilaterally, normal breath sounds, no respiratory distress, no wheezing. Cardiovascular rate normal, regular rhythm, no murmur, no edema, distal pulses normal. Gastrointestinal soft, non-tender, no rebound, no guarding, normal bowel sounds, no distension, no pulsatile mass. Genitourinary no CVA tenderness. Musculoskeletal no midline vertebral tenderness, full range of motion, no calf swelling, no tenderness of extremities, no meningismus, good pulses, neurovascularly intact. Skin pink, warm, & dry, no rash, skin atraumatic. Neurologic awake, alert and oriented x 3, AAOx3, moves all 4 extremities equally, motor intact, sensory intact, CN II-XII intact, normal cerebellar, normal vision, normal speech. Psychiatric normal mood/affect. Heme/Lymph/Immune no lymphadenopathy. Differential Diagnosis: Includes but is not limited to in a particular order polysubstance abuse, methamphetamine abuse, schizophrenia, mood disorder, bipolar disorder, suicidal ideation, depression Medical Decision Making: Plan for this patient he is suicidal he is on M1 hold by police, he will need blood draw for medical clearance. Drug screen. And then mental health evaluation. Re-evaluation: 0427AM: Patient has been seen and evaluated by [facility]. Patient endorsing SI they will look for placement ATU. 0700AM: No acute events overnight, on m1 hold. Needs Evaluation. Signed over to Dr. Landrum at 7am (Faheem Guevara) Constitutional: Initial Vital Signs Temperature (C) 37 C 07/23/17 23:50 Heart Rate 94 07/23/17 23:50 Respiratory Rate 16 07/23/17 23:50 Blood Pressure 138/92 H 07/23/17 23:50 O2 Sat (%) 99 07/23/17 23:50 O2 Delivery Mode Room Air O2 (L/minute) 98 Allergies/Adverse Reactions: haloperidol [From Haldol] Allergy (Verified 04/01/17 05:53) ibuprofen Allergy (Verified 04/01/17 05:53) Home Medications: Medication Instructions Recorded Ambien 05/06/17 Gabapentin 05/06/17 Lisinopril 05/06/17 Sertraline HCl [Zoloft 100mg (*)] 05/06/17 Suboxone 12 mg-3 mg Sl Film 05/11/17 Medical Decision Making Other Provider: 1400: Patient has been accepted to for admission. We are awaiting transfer. ( Vernon Landrum) - Data Points Laboratory Results: Laboratory Results 07/24/17 00:31 07/24/17 00:11 Medications Given: Discontinued Medications Lorazepam (Ativan) 1 mg PO EDNOW ONE Stop: 07/24/17 13:56 Last Admin: 07/24/17 13:57 Dose: 1 mg Departure - Departure Disposition: [facility] IP Clinical Impression: Suicidal ideation Condition: Fair Referrals: NONE *PRIMARY CARE P,. [Primary Care Provider] - As per Instructions
[2017-07-24 00:53] LABS: PLATELET COUNT 324 10^3/uL (150-400)
[2017-07-24] MEDS ORDERED: LORazepam 1 MG TAB PO ONE (13:55)
[2017-07-24 16:12] VITALS: BP 135/58
== END 2017-07-24 16:12 ==
LOC: EDUNIT#
DX: R45.851 Suicidal ideations (principal)
CPT/HCPCS: 80305; G0480

== ENCOUNTER 2017-07-24 16:30 | Inpatient (IN) | payer MEDICAID, OTHER ==
[2017-07-24] MEDS ORDERED: NICOTINE POLACRILEX 2 MG GUM B PRN (18:30)
[2017-07-24] MEDS ORDERED: MAG HYDROX/AL HYDROX/SIMETH 30 ML UDCUP PO PRN (18:30)
[2017-07-24] MEDS ORDERED: MAGNESIUM HYDROXIDE 30 ML UDCUP PO PRN (18:30)
[2017-07-24] MEDS ORDERED: LORazepam 0.5 MG TAB PO PRN (18:30)
[2017-07-24] MEDS ORDERED: OLANZapine DISINTEGR 10 MG TAB PO PRN (18:30)
[2017-07-24] MEDS ORDERED: NON-FORMULARY NEW DRUG (Gabapentin [Gabapentin] 600 MG) PO SCH (22:00)
[2017-07-24] MEDS ORDERED: GABAPENTIN 300 MG CAP PO SCH (22:00)
[2017-07-25] MEDS ORDERED: OLANZapine DISINTEGR 10 MG TAB PO PRN (07:44)
[2017-07-25] MEDS ORDERED: hydrOXYzine HCL 25 MG TAB PO PRN (07:46)
[2017-07-25] MEDS ORDERED: QUEtiapine FUMARATE 50 MG TAB PO PRN (08:01)
[2017-07-25] MEDS: buPROPion XL 150 MG TAB PO SCH (08:44)
[2017-07-25] MEDS: OXcarbazepine 300 MG TAB PO SCH ×2 (08:44→19:53)
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
--- NOTE | 2017-07-25 14:10 | BCON ---
[f rep st] BEHAVIORAL HEALTH CONSULTATION INTERNAL MEDICINE CONSULTATION DATE OF CONSULTATION: 07/25/2017 REFERRING PHYSICIAN: VLADIMIR BETANCUR MD REASON FOR REFERRAL: Medical clearance for inpatient behavioral health stay. HISTORY OF PRESENT ILLNESS: This patient came to the emergency department voluntarily, expressing lopez icidal ideation and auditory hallucinations, and reported that he was concerned that he might commit suicide. He was evaluated by the mental health team and admitted for further psychiatric care. He currently is without any acute complaints. PAST MEDICAL HISTORY: 1. Polysubstance abuse including methamphetamine, marijuana, and cocaine. 2. Psychiatric issues with diagnoses of schizophrenia, major depressive disorder, and bipolar disord er. 3. Hepatitis C. PAST SURGICAL HISTORY: He has had no previous surgeries. MEDICATIONS: 1. Bupropion XL 150 mg p.o. daily. 2. Zolpidem 10 mg q.h.s. 3. Sertraline 150 mg p.o. daily. 4. Gabapentin 600 mg p.o. t.i.d. 5. Buprenorphine/naloxone 8 mg/2 mg 1 tab sublingual b.i.d. SOCIAL HISTORY: He is homeless. He is an occasional smoker. He denies using alcohol. He has been staying with a friend in [place]. FAMILY HISTORY: Noncontributory. REVIEW OF SYSTEMS: He reports a 50-pound weight loss in several months, and a 14-kilogram weight los s since February of 2017 is documented in the chart. He reports a normal appetite. He reports he gibson s food stamps and his access to food is not limited. He denies fevers or chills, cough or dyspnea, n ausea, vomiting, constipation, or diarrhea. He denies dysuria. Otherwise, a 10-point review of syst ems is negative. PHYSICAL EXAM: VITAL SIGNS: Blood pressure is 93/55, heart rate is 50, this was at 6 o'clock this m orning, respiratory rate was 16, oxygen saturation was 96% on room air. Temperature was 36.4 degrees centigrade. His weight is 88.5 kg for a body mass index of 30.5. GENERAL: This is an overweight a ppearing man, napping in bed, easily awakened, cooperative and in no acute distress. HEENT: Extraoc ular movements are intact. Pupils are equal, round, reactive to light. Mucous membranes are moist. Dentition is in good condition. He has a moderately crowded airway, Mallampati class 3. NECK: Sup ple. HEART: Regular rate and rhythm and rhythm with no murmurs, rubs, or gallops. LUNGS: Clear to auscultation bilaterally. ABDOMEN: Soft, slightly tender in the right upper quadrant, nondistended , with normoactive bowel sounds and no hepatosplenomegaly. EXTREMITIES: There is no cyanosis, clubb ing, or edema. NEUROLOGIC: He is alert and oriented x3. Cranial nerves 2-12 are grossly intact. T here is no focal weakness. Sensation is intact to light touch. LABORATORY STUDIES: From the emergency department yesterday, CBC was overall within normal limits. He had a low MCV and low MCH indicating a possibility of iron deficiency. However, he did not have a ny anemia. Serum chemistry revealed a slight hypernatremia with a sodium of 147, carbon dioxide was low at 18, and there was an anion gap of 22, glucose was slightly high at 106 and otherwise, renal fu nction and electrolytes were within normal limits. Toxicology screen in the serum was negative for e thyl alcohol and in the urine was non negative for benzodiazepines and marijuana. ASSESSMENT/RECOMMENDATIONS: 1. Mental health issues, pending further evaluation and management per Psychiatry and the mental a lt team. 2. Weight loss of unclear etiology. TSH was checked as recently as March, but I will repeat a TSH . He should consider age-appropriate cancer screening if he continues to lose weight involuntarily, especially once his psychosocial situation is stabilized. It would be in his interest to have volunt erma weight loss. 3. Hepatitis C. We will add liver function tests, though he has had no impairment of liver function tests on past laboratory studies done on his visits to [facility]. 4. Hypernatremia. He reports that he may have had some dehydration and reduced fluid intake. He sh ows no signs or symptoms and the laboratory abnormality was mild. The same holds true for the anion gap that was seen. It could be a result of dehydration and reduced oral intake. If he has normal fo od and fluid intake, there is no indication for repeat testing unless he would develop symptoms. I see no medical contraindications to this patient's continued stay on the inpatient [facility] unit or to any psychiatric medications or procedures. Thank you very much for including me in the care of this patient and please do not hesitate to contac t me or the hospitalist service should there be need for further medical evaluation. /[id number]/MODL
[2017-07-26] MEDS: OXcarbazepine 300 MG TAB PO SCH ×2 (07:50→19:32)
[2017-07-26] MEDS: buPROPion XL 150 MG TAB PO SCH (07:50)
[2017-07-26] MEDS ORDERED: QUEtiapine FUMARATE 25 MG TAB PO PRN (08:22)
--- NOTE | 2017-07-26 08:26 | SOAPPROG ---
SOAP Progress Note Assessment/Plan: Assessment: Unspecified Bipolar Disorder History of ADHD and PTSD History of HepC Borderline elevated TSH Opioid Use Disorder, severe - on Suboxone from [facility] in [place] Cannabis Use Disorder, severe History of Stimulant Use Disorder Housing and financial stressors Possible Malingering Patient admitted on M-1 for suicidal thoughts in the context of inability to travel to [place] to obtain his Suboxone prescription. Patient has a long history of severe mental illness and substance abuse, with past trials of multiple mood stabilizer and antipsychotic medications for bipolar disorder, but recurrent non-compliance with psychiatric medications and outpatient treatment while homeless. Patient has 17 ER visits for a variety of medical and psychiatric symptoms in past 6 months along with 2 hospitalizations at [facility]. Patient appears more calm this AM but reports continued depression, insomnia, and SI. Patient has severe stressors. Plan: Patient agrees to voluntary treatment Continue Trileptal 300mg BID, restarted 07/25/17 Reviewed risks of Trileptal: Pedrito Chadwick Syndrome, hyponatremia, and sedation Continue Wellbutrin XL 150mg QAM, restarted 07/25/17 Discussed risks of Wellbutrin: insomnia, seizure, headache, nausea, false positive urine drug screen Continue Suboxone 8mg/2mg SL BID (in PDMP) Discontinue PRN Vistaril Start Seroquel 50mg QHS for insomnia and bipolar depression, 25mg U5enrei PRN anxiety/agitation Reviewed risks of Seroquel: sedation, metabolic syndrome, tardive dyskinesia, hypotension Discussed borderline elevated TSH and follow up with a PCP to recheck in one month SP1 precautions Patient reports he is a client at [facility] and is in the Path program at [facility] 07/26/17 08:27 Subjective: CC: "the same" Patient reports continued low mood and feeling anxious about the future. Reports continued thoughts of and suicide but denies plan/intent to harm self on unit. Reports reduced irritability and reduced racing thoughts. Reports reduced and disrupted sleep. Denies nausea or vomiting or muscle aches. Reports seeing Dr. Genao at [facility] in [place] for Suboxone but does not have transportation. Reports he is assigned to see Dr. Wilde at [facility] but has never seen her. Reports in past taking up to 600mg of Seroquel but feeling sedated, willing to take a lower dose for sleep and anxiety. Reports he can 'probably' stay with a friend after discharge. Objective: Vital Signs Temp Pulse Resp BP Pulse Ox 36.6 C 63 14 113/73 99 07/26/17 06:00 07/26/17 06:00 07/26/17 06:00 07/26/17 06:00 07/26/17 06:00 Staff report patient slept 8 hours. Anxious on unit, able to sit through some groups with minimal participation. Took PRN Hydroxyzine at 1500 yesterday without benefit. TSH 5.4, LFTs WNL Alert WM. appears anxious at times but less agitated than yesterday. Speech RRR, briefly loud. Mood 'the same' affect restricted, anxious. Thoughts organized. Reports SI without plan and wish throughout the morning. Denies AH or paranoia or violent thoughts. Limited insight. Impaired judgment. - Time Spent With Patient Time Spent With Patient: 20 minutes - Pending Discharge Pending Discharge Within 24 Hours: No Pending Discharge Within 48 Hours: No ICD10 Worksheet Patient Problems: Problems Problem Status Onset Bipolar disorder, unspecified Acute Malingering Acute Posttraumatic stress disorder Acute Acute paranoia Acute Polysubstance abuse Acute Hepatitis C Chronic Homeless Chronic
[2017-07-26] MEDS ORDERED: MAGNESIUM CITRATE 300 ML BOTTLE PO ONE (10:15)
[2017-07-26] MEDS: QUEtiapine FUMARATE 50 MG TAB PO SCH (21:25)
[2017-07-27] MEDS: buPROPion XL 150 MG TAB PO SCH (08:15)
[2017-07-27] MEDS: OXcarbazepine 300 MG TAB PO SCH ×2 (08:15→19:33)
[2017-07-27] MEDS: POLYETHYLENE GLYCOL 3350 17 GM PKT PO SCH (10:49)
--- NOTE | 2017-07-27 13:47 | SOAPPROG ---
SOAP Progress Note Assessment/Plan: Assessment: 37 yo homeless man with h/o cannabis use disorder, opioid use disorder ( currently on Suboxone), bipolar disorder and ADHD. Plan: 07/27/17 13:41 1. TSH was slightly elevated at 5.460. He reports unexplained weight loss, but denies other sxs of hyperthyroidism. He had TSH checked in 03/2017 and it was WNL. Will ask Dr. Mayer to consult on this abnormal lab finding. 2. Patient was restarted on his outpatient meds, including Trileptal, Wellbutrin , Seroquel and Suboxone. He denied any SE's or physical complaints since restarting meds. 3. MD spoke with Lavell POOLE, who contacted patient's Suboxone provider, Dr. Arcadio Genao, at [facility] in [place]. They gave patient an appt tomorrow at 14:45. 4. Patient states he is no longer having any thoughts, plan or intent to hurt himself or anyone else. He would like to d/c tomorrow and go directly to his Suboxone appointment in [place]. He has a f/u appt with P to see Dr. Wilde on 08/23/17. Will try to get an earlier appointment for continuity. 5. Patient says he is glad to be back on his meds and find them very helpful. He denies any SI/HI today, no evidence of psychosis. Subjective: Met with patient, reviewed chart and d/w staff. Patient was restarted on his outpatient meds, including Trileptal, Wellbutrin, Seroquel and Suboxone. He denied any SE's or physical complaints since restarting meds. MD spoke with Lavell POOLE, who contacted patient's Suboxone provider, Dr. Arcadio Genao, at [facility] in [place]. They gave patient an appt tomorrow at 14:45. Patient states he is no longer having any thoughts, plan or intent to hurt himself or anyone else. He would like to d/c tomorrow and go directly to his Suboxone appointment in [place]. He has a f/u appt with P to see Dr. Wilde on . Will try to get an earlier appointment for continuity. Patient says he is glad to be back on his meds and find them very helpful. He denies any SI/HI today, no evidence of psychosis. Patient says he understands that psych meds for mood often take several weeks to become fully effective and might need dose adjustment after his outpatient providers have had sufficient time to assess the benefit he is getting from them. Patient agrees that the best way to find the "right meds" is to establish care with a provider who can monitor patient over long period of time. He agrees to do this at [facility]. Objective: Vital Signs Temp Pulse Resp BP Pulse Ox 36.4 C 59 L 16 91/53 L 97 07/27/17 06:34 07/27/17 06:34 07/27/17 12:39 07/27/17 06:34 07/27/17 06:34 MSE: Affect: Euthymic Mood: "OK" TP: Tangential TC: Denies any SI/HI, no evidence of psychosis Insight/Judgment: Poor - Time Spent With Patient Time Spent With Patient: 20" - Pending Discharge Pending Discharge Within 24 Hours: Yes Pending Discharge Date: 07/28/17 (Likely to d/c tomorrow to f/u appt at [facility] at 14:45) Pending Discharge Time: 11:00 ICD10 Worksheet Patient Problems: Problems Problem Status Onset Bipolar disorder, unspecified Acute Malingering Acute Posttraumatic stress disorder Acute Acute paranoia Acute Polysubstance abuse Acute Hepatitis C Chronic Homeless Chronic
[2017-07-27] MEDS ORDERED: MAGNESIUM CITRATE 300 ML BOTTLE PO PRN (14:01)
[2017-07-27] MEDS: QUEtiapine FUMARATE 50 MG TAB PO SCH ×3 (19:33→21:25)
[2017-07-28 07:10] VITALS: BP 82/49
[2017-07-28] MEDS: OXcarbazepine 300 MG TAB PO SCH (08:42)
[2017-07-28] MEDS: POLYETHYLENE GLYCOL 3350 17 GM PKT PO SCH (08:42)
[2017-07-28] MEDS: buPROPion XL 150 MG TAB PO SCH (08:42)
--- NOTE | 2017-07-28 14:18 | BDS ---
[f rep st] BEHAVIORAL HEALTH DISCHARGE SUMMARY REASON FOR ADMISSION: The patient is a 37-year-old single white man, who is homeless, temporarily [facility] with a friend in [place]. The patient's mother and brother live in [place]. The patient has had 17 emergency department visits at [facility] since January of 2017. The patient stat es that he has not been seeing a psychiatrist for his psych medications, but has been getting Suboxon e from a provider in [place]. The Prescription Drug Monitoring Program indicates the patient filled a prescription for Suboxone 8 mg dose to be taken twice a day 3 weeks ago. The patient reports he has been having depression, racing thoughts, severe insomnia, feeling agitated, irritable, having though ts of overdosing on pills or hanging himself. He says he had been worried that he is going to become violent, but denies a specific plan to hurt anyone in particular. He denies any recent violent or s elf-injurious behavior. He denies auditory hallucinations. He reports brief episodic paranoia that he is being followed by someone. He reports that he also feels sad, hopeless, helpless, and continue s to want to hurt himself and kill himself. He says he has been taking Suboxone intermittently over the past 3 weeks by stretching out the 2-week supply that he had been prescribed by his provider in [facility]. He did get a dose of Suboxone in the emergency department the night prior to admission. He d oes admit to regular cannabis use. He denies use of any other substances. He does have a prior hist ory of addiction to opiates, amphetamines and cannabis. The patient was placed on a mental health ho ld by police after a friend called the police to their home because the patient was reporting suicida l thoughts with a plan to hang himself or overdose if he could not get more Suboxone. ADMITTING DIAGNOSES: 1. Bipolar disorder type 1, most recent episode depressed with mixed features. 2. Posttraumatic stress disorder. 3. Attention deficit hyperactivity disorder, by history. 4. Opiate disorder, severe. 5. Stimulant use disorder, severe, in early remission. 6. Cannabis use disorder, severe. 7. Homelessness. 8. Lack of support. 9. Lack of income. 10. History of hepatitis C. 11. Malingering to avoid homelessness and to obtain Suboxone. PHYSICAL EXAMINATION: Admitting physical examination was performed by Dr. Sameer Mayer. Please s ee his H and P for results. ADMISSION LABS: In the emergency room, his urine drug screen was positive for cannabis and benzodiaz epines but negative for opiates. He had a sodium level of 147, potassium 4.1, creatinine 0.7, glucos e 106, calcium 10.1, phosphorus 2.3, total bilirubin 0.2, AST 25, ALT 25, alkaline phosphatase 78. I n February of 2017, he had triglycerides 116, LDL 68, HDL 42, TSH 3.8. On May 24, he had a white b lood cell count of 7.9. Hemoglobin was 15.1, and platelet count was 324. HOSPITAL COURSE: When Dr. Ratliff saw the patient on day of admission, the patient was irritable and demanding, was yelling and screaming at the physician. The patient was placed on safety and suicide precautions. Dr. Ratliff discussed options for restarting the patient on Trileptal. The patient re ports that he has had benefit from this medication as a mood stabilizer in the past. He states that he did not tolerate lithium or Depakote in the past. He also says he has had excessive sedation with Seroquel and Zyprexa, as well as EPS or akathisia from other antipsychotics. Dr. Ratliff discussed the risks, benefits, and side effects of Trileptal, including hyponatremia, sedation, and Finch-Jese nson's. The patient gave informed consent, and Trileptal was started, 300 mg p.o. twice a day as a m ood stabilizer. The patient also reported that he has benefitted from Wellbutrin in the past for hel p with both depression and ADHD. The patient, after being explained the risks, benefits, and side ef fects of Wellbutrin XL, the patient gave informed consent to start that as well. He was also prescri bed his usual dose of Suboxone, which is 8 mg of buprenorphine and 2 mg of naloxone sublingual twice a day. The patient was given Vistaril 25 mg p.o. q.6 hours p.r.n. for anxiety since he could not be given benzos while on Suboxone. He was also given Seroquel 50 mg p.o. q.h.s. at night for insomnia a nd Seroquel 25 mg p.o. q.6 hours p.r.n. for agitation and psychosis. When Dr. Ratliff met with the patient again on 07/26/2017, the patient appeared more calm. He was no t agitated, not yelling and screaming. He was more pleasant and cooperative, but continued to report symptoms of depression, including sadness, hopelessness, helplessness, anxiety, insomnia, and though ts of suicide. Patient's hopelessness and thoughts of suicide related to the fact that he is homeles s and does not have any options for housing at this time, and also that he has had difficulty getting in to see a Suboxone provider in [place] and has not had his regular doses of Suboxone for the last c ouple of weeks. Upon the expiration of the patient's mental health hold, he agreed to stay in the [facility] voluntarily to get stabilized on his medications and to get followup appointments [facility] with [facility] prescriber in [place], Arcadio Genao at [facility], to continue on Suboxone. The patien t told Dr. Ratliff that he continued to feel anxious about the future. He has continued thoughts of but denies any plan or intent to hurt himself or anyone else. He had reduced irritability and reduced racing thoughts since being restarted on his medication. He denied nausea, vomiting, or musc le aches. There were no signs of any EPS or any other physical complaints reported. He says that he can "probably" stay with a friend after discharge. He plans to stay in [place], even though his Sub oxone provider, Dr. Genao, is at [facility] in [place]. He says he just needs transpor tation in order to get down there and back. This has been one of the barriers to him being compliant with outpatient treatment in the past. He has gone on and off his Suboxone multiple times over the last 3 years. He says that he has never taken the medication reliably because he has not always been compliant with appointments, and the same applies to his psychotropic medications. He has a long il story of being prescribed psychotropic medications for various mood-related diagnoses, including madhav r depression and bipolar disorder, but says that he does not always follow up with providers, does no t always keep his appointments, and oftentimes goes off the medications without contacting his provid ers. When this MD met with the patient on 07/27/2017, he was much calmer, more pleasant, and cooperative. He was interested in getting connected with outpatient mental health services in [facility]. He states that he has a followup appointment to see Dr. Wilde at [facility] on August 23. MD said that he would recommend to the rn long term care to try to get the patient an earlier appoint ment so that there would be better continuity of care. The patient also agreed to contact [facility] in order to schedule his next appointment with Dr. Genao in order to get back on his regular dose of Suboxone. When this MD met with the patient, he denied any physical complaints or side effects since restarting his medications. The patient denied feeling sad, depressed, or hopeless. He said that he was much more optimistic and positive now that he knew that he was going to get some mental health services [facility], and he agreed to go back and see his Suboxone provider in [facility] on his regular Suboxone dose, which he says obviously helps reduce his risk of relapse, but MD fredy biswas explained to the patient that going on and off the Suboxone also causes mood-related side effects, both from being on opiates and being in withdrawal from opiates and just managing his cravings for mo od-altering substances. The MD also explained to the patient that as long as he continues to use can nabis, he is going to experience both cognitive, as well as mood-related side effects from cannabis. We know that patients who use cannabis are more likely to experience suicidal ideation and are also more likely to experience mood swings and to feel depressed, but also to have impaired cognition, to have impaired judgment and increased mood lability and impulsivity. The patient denied having any th oughts, plans or intents to hurt himself or anyone else. The patient presented as more future orient ed based upon the plans that he was making to get back into regular compliance with his Suboxone cayla men, and also to get connected with mental health providers here in [place]. On day of discharge, the patient was enthusiastic and excited that he was going to see Dr. Genao on the afternoon of his discharge day. He has an appointment at 2:45 on 07/28/[address] Genao at [facility] in [place]. He was given 2 regional bus passes in order to make the conn ection from here to his provider's office in [place]. He denied any thoughts, plans or intent to hurt himself or anyone else. He also denied feeling depressed, helpless, hopeless, worthless or anxious. He presented as much calmer, more invested in treatment, and expressing more insight about the need to avoid mood-altering substances, as well as to stay on his medication regimen and do regular follo wups with outpatient providers in order to have the best long-term chance of success at stabilizing h is mood. CONDITION ON DISCHARGE: Patient was stable. His affect was euthymic. He was appropriate. He was v oicing no thoughts or plans or intent to hurt himself or anyone else. He denied any manic symptoms. There was no evidence of psychosis. He was compliant with medications. DISCHARGE MEDICATIONS: Include Wellbutrin XL 150 mg p.o. daily, Seroquel 50 mg p.o. q.h.s., Trilepta l 300 mg p.o. b.i.d., Suboxone, 8 mg of buprenorphine, 2 mg of naloxone p.o. b.i.d. He was given scr ipts for all of his medications, except for the Suboxone. He was given a 10-day supply of all of his medications because he has a followup to last him until his followup appointment with Dr. Goldberg at [facility] on August 04. DISCHARGE DIAGNOSES: 1. Bipolar disorder type 1, most recent episode depressed with mixed features. 2. Posttraumatic stress disorder. 3. Attention deficit hyperactivity disorder by history. 4. Malingering, to avoid homelessness and to obtain Suboxone. 5. Opioid use disorder, severe, currently on Suboxone maintenance. 6. Stimulant use disorder, severe, in early remission. 7. Cannabis use disorder, severe. 8. Homelessness. 9. Lack of social support. 10. Lack of income, currently unemployed. 11. History of hepatitis C. DISPOSITION: The patient is discharged from the hospital with 2 bus passes to go to [facility] to see Dr. Arcadio Genao to get a prescription for Suboxone. He also has a followup with Dr. Goldberg at [facility] on August 04 at 11:30 a.m. LEGAL COURSE: Patient was placed on voluntary status upon the expiration of his M1 hold. /[id number]/MODL
== END 2017-07-28 12:20 | disposition home or self-care (01) | DRG 885 ==
LOC: BBEH 16:30
PROVIDERS: ADMIT Psychiatry & Neurology Psychiatry; ATTEND Psychiatry & Neurology Psychiatry
DX: F31.9 Bipolar disorder, unspecified (principal); R63.4 Abnormal weight loss; B19.20 Unspecified viral hepatitis C without hepatic coma; E87.0 Hyperosmolality and hypernatremia; F12.20 Cannabis dependence, uncomplicated; F15.21 Other stimulant dependence, in remission; F43.10 Post-traumatic stress disorder, unspecified; F90.9 Attention-deficit hyperactivity disorder, unspecified type; Z59.0 Homelessness; Z59.9 Problem related to housing and economic circumstances, unspecified; Z76.5 Malingerer [conscious simulation]
CPT/HCPCS: J0574

== ENCOUNTER 2017-07-29 19:58 | Emergency (ER) | payer MEDICAID, OTHER ==
--- NOTE | 2017-07-29 20:04 | EDPHY ---
H & P Source: Patient, Police, RN/MD Exam Limitations: No limitations - Personal History Tetanus Vaccine Date: < 10 YEARS - Medical/Surgical History Hx Asthma: No Hx Chronic Respiratory Disease: No Hx Diabetes: No Hx Cardiac Disease: No Hx Renal Disease: No Hx Cirrhosis: No Hx Alcoholism: No Hx HIV/AIDS: No Hx Splenectomy or Spleen Trauma: No Other PMH: Hep C bipolar depressio n - Social History Smoking Status: Never smoked Time Seen by Provider: 07/29/17 20:03 HPI/ROS: HPI: This is a 37-year-old male who presents with Chief Complaint: [facility] secondary to drug use Location: psych Quality: Suicidal ideation, delusions, paranoia Duration: Today Signs and Symptoms: Timing: Acute on chronic Severity: Severe Context: Patient was sent over from the [facility] as he inhaled methamphetamine approximately 2 hr prior to arrival. He reports that he also has a history of heroin use but has not used this drug in quite some time. Patient reports that when he arrived at the [facility], he was "high as a kite." He had a M1 hold taken out by [facility] with presentation of suicidal ideation with a plan to shoot self. Patient is gravely disabled due to persecutory paranoid delusions about being conspired against. Patient reports that he has not been taking any of his psychiatric medications. Denies any recent alcohol use. Currently has no medical complaints including no chest pain, no shortness of breath, no abdominal pain. Patient has not slept in 3 days. I noted that his eyes were red bilaterally patient reports that they get like that when he uses methamphetamine. Denies visual changes/eye discharge/foreign body sensation. Modifying Factors: None Comment: ROS: see HPI Constitutional: No fever, no chills, no weight loss Eyes: No blurred vision Respiratory: No shortness of breath, no cough Cardiovascular: No chest pain Gastrointestinal: No nausea, no vomiting, no diarrhea Genitourinary: No dysuria Extremities: No myalgias Neurologic: No weakness, no numbness Skin: No rashes Hematologic: No bruising, no bleeding MEDICAL/SURGICAL/SOCIAL HISTORY: Medical history: Hepatitis C, bipolar depression, schizophrenia, polysubstance abuse. Surgical history: Denies Social history: Homeless. Family history noncontributory. CONSTITUTIONAL: Untidy, adult white male, awake and alert, no obvious distress HEENT: Atraumatic and normocephalic, PERRL, EOMI. Conjunctiva irritated; no discharge. Nares patent; no rhinorrhea; no nasal mucosal edema. Tympanic membranes clear. Oropharynx clear, extremely poor dentition, no exudate and moist pink mucosa. Airway patent. No lymphadenopathy. No meningismus. Cardiovascular: Normal S1/S2, regular rate, regular rhythm, without murmur rub or gallop. PULMONARY/CHEST: Symmetrical and nontender. Clear to auscultation bilaterally. Good air movement. No accessory muscle usage. ABDOMEN: Soft, nondistended, nontender, no rebound, no guarding, no peritoneal signs, no masses or organomegaly. No CVAT. EXTREMITIES: 2/2 pulses, strength 5/5, no deformities, no clubbing, no cyanosis or edema. NEUROLOGICAL: no focal neuro deficits. GCS 15. SKIN: Warm and dry, no erythema. no rash. Good capillary refill. PSYCH: Poor eye contact, + flight of ideas, tangential disorganized thought process, poor insight and judgment, + auditory and visual command hallucinations , + suicidal ideation with a plan, no homicidal ideation, + paranoid ([place]) Constitutional: Initial Vital Signs Temperature (C) 36.7 C 07/29/17 20:00 Heart Rate 105 H 07/29/17 20:00 Respiratory Rate 16 07/29/17 20:00 Blood Pressure 175/116 H 07/29/17 20:00 O2 Sat (%) 98 07/29/17 20:00 O2 Delivery Mode Room Air Allergies/Adverse Reactions: haloperidol [From Haldol] Allergy (Verified 04/01/17 05:53) ibuprofen Allergy (Verified 04/01/17 05:53) Home Medications: Medication Instructions Recorded BUPRENORPHINE/NALOXONE 8mg/2mg 1 tab SL BID 05/11/17 [SUBOXONE 8mg/2mg] BUPRENORPHINE/NALOXONE 8mg/2mg 1 tab SL BID tab 07/28/17 [SUBOXONE 8mg/2mg] OXcarbazepine [Trileptal 300mg (*)] 300 mg PO BID #20 tab 07/28/17 QUEtiapine FUMARATE [Seroquel 50 50 mg PO HS #10 tab 07/28/17 mg (*)] buPROPion XL [Wellbutrin 150mg XL] 150 mg PO DAILY #10 tab 07/28/17 Medical Decision Making ED Course/Re-evaluation: 1999: Agree with M1 hold as patient is clearly intoxicated as well as expressing thoughts of shooting himself and being paranoid with delusion. Labs and UDS ordered. Patient is currently calm and cooperative. No chemical interventions ordered at this time. There are no signs for bacterial conjunctivitis. No indication for bacterial eyedrops. Suspect eye irritation is due to methamphetamine use and dry eye. Started on Patanol eyedrops. 2203: labs reviewed. No signs of leukocytosis/anemia/GARRET/electrolyte imbalance. 2214: Notified by nurse that urine sample finally received. 2239: Urine drug screen positive for amphetamine, marijuana, benzodiazepine. Will need to wait 12 hr before able to medically clear for mental health evaluation. Zyprexa 10 mg given. End of Shift. Signed over to Dr. Álvarez pending AM 1040 medical clearance. This patient was seen under the supervision of my secondary supervising physician. I evaluated care for this patient independently. Discussed this patient with Dr. Landrum who did not see the patient. (Sarah Beth Sexton) 6:30 a.m.- The patient was stable overnight. He continues to await mental health evaluation as his urine toxicology was positive for amphetamines. He has spent most of the night standing in his room in pacing. He was given additional Zyprexa and Ativan though was unable to rest. He is not agitated. The case will be signed out at 7:00 a.m. To the oncoming provider Dr. Chowdhury. (Chela Álvarez) Differential Diagnosis: Altered mental status including but not limited to hypoglycemia, schizophrenia, psychosis, harman, electrolyte abnormality, intoxicants. (Sarah Beth Sexton) Other Provider: I assumed care of the patient at 0700. I reviewed the patient's past medical records including his discharge summary from the inpatient unit at [address] [place] [address] yesterday. The patient is being evaluated by [facility] at 10:00 a.m.. He has remained calm and cooperative in the emergency department. At 11:00 a.m. The patient was evaluated by Keenan from [facility]. The case was discussed with Dr. Khalif Edwards, the on-call psychiatrist. The patient does not currently meet criteria for an M1 psychiatric hold as he is no longer suicidal office methamphetamine. The patient is scheduled to follow up as an outpatient with Dr. Goldberg this Monday. The patient has been given the contact number for the crisis workers. He is discharged home with customary aftercare instructions and return precautions. The M1 psychiatric hold was vacated at 11:00 a.m. at the recommendation of [facility]. (Juan Alberto Chowdhury) - Data Points Laboratory Results: Laboratory Results 07/29/17 21:14 07/29/17 21:14 Medications Given: Miscellaneous Medication (Non-Formulary) 1 ea SL BID@0700,1900 [facility] Stop: 01/26/18 06:59 Last Admin: 07/30/17 06:55 Dose: 1 tab Olopatadine HCl (Patanol 0.1%) 1 drops EACHEYE BID [facility] Stop: 01/26/18 08:59 Last Admin: 07/30/17 09:07 Dose: 1 drop Discontinued Medications Lorazepam (Ativan) 1 mg PO EDNOW ONE Stop: 07/30/17 01:30 Last Admin: 07/30/17 01:31 Dose: 1 mg Lorazepam (Ativan) 1 mg PO EDNOW ONE Stop: 07/30/17 02:07 Last Admin: 07/30/17 02:19 Dose: 1 mg Olanzapine (Zyprexa Zydis) 10 mg PO EDNOW ONE Stop: 07/29/17 22:44 Last Admin: 07/29/17 22:46 Dose: 10 mg Olanzapine (Zyprexa Zydis) 10 mg PO EDNOW ONE Stop: 07/30/17 00:27 Last Admin: 07/30/17 00:26 Dose: 10 mg Departure - Departure Disposition: Home, Routine, Self-Care Clinical Impression: Schizophrenia, acute, Methamphetamine abuse, Verbalizes suicidal thoughts Psychosis Qualifiers: Psychosis type: schizophrenia Schizophrenia type: paranoid schizophrenia Qualified Code(s): F20.0 - Paranoid schizophrenia Condition: Good Instructions: Mental Health [facility] Additional Instructions: 1. Please follow-up with the mental health resources provided in the ED today. 2. [facility] does operate a 24/7 psychiatric crisis unit located at [address] [place] [address]. The telephone number for the 24 hour crisis center is [phone]. 3. Please return to the ED if you are feeling suicidal, having thoughts of harming yourself/others or should you feel unsafe or have worsening symptoms.
[2017-07-29 21:29] LABS: PLATELET COUNT 327 10^3/uL (150-400)
[2017-07-29] MEDS ORDERED: OLANZapine DISINTEGR 10 MG TAB PO ONE (22:43)
[2017-07-29] MEDS ORDERED: OLANZapine DISINTEGR 10 MG TAB ONE (22:44)
[2017-07-29] MEDS: OLOPATADINE 0.1% 5 ML OPHT.BTL EACHEYE SCH (22:47)
[2017-07-30] MEDS ORDERED: OLANZapine DISINTEGR 10 MG TAB PO ONE (00:26)
[2017-07-30] MEDS ORDERED: LORazepam 1 MG TAB PO ONE ×2 (01:29→02:06)
[2017-07-30] MEDS ORDERED: LORazepam 1 MG TAB ONE (01:30)
[2017-07-30] MEDS: OLOPATADINE 0.1% 5 ML OPHT.BTL EACHEYE SCH (09:07)
[2017-07-30 11:30] VITALS: BP 126/93
== END 2017-07-30 11:54 | disposition home or self-care (01) ==
LOC: EDUNIT#
DX: R45.851 Suicidal ideations (principal); F20.0 Paranoid schizophrenia; F15.10 Other stimulant abuse, uncomplicated
CPT/HCPCS: 80305; G0480; J0574

== ENCOUNTER 2017-07-31 02:27 | Emergency (ER) | payer MEDICAID ==
--- NOTE | 2017-07-31 02:46 | EDPHY ---
H & P Time Seen by Provider: 07/31/17 02:45 HPI/ROS: HPI CHIEF COMPLAINT: Methamphetamine abuse HISTORY OF PRESENT ILLNESS: Patient 37-year-old male, well known to myself as well as the ER history polysubstance abuse and homelessness, presents emergency room with methamphetamine abuse. He states he recently did some methamphetamine this evening. He became paranoid decided call 911 came to the emergency room. He denies wanting to hurt himself or anybody else. Denies SI or HI. Past Medical History: History of major depressive disorder, schizophrenia, polysubstance use, methamphetamine abuse, anxiety Past Surgical History: No recent surgery Social History: Homelessness and methamphetamine/polysubstance abuse, Family History: Noncontributory ROS REVIEW OF SYSTEMS: A comprehensive 10 point review of systems is otherwise negative aside from elements mentioned in the history of present illness. Exam Constitutional nontoxic. triage nursing summary reviewed, vital signs reviewed , awake/alert. Eyes normal conjunctivae and sclera, EOMI, PERRLA. HENT normal inspection, atraumatic, moist mucus membranes, no epistaxis, neck supple/ no meningismus, no raccoon eyes. Respiratory clear to auscultation bilaterally, normal breath sounds, no respiratory distress, no wheezing. Cardiovascular rate normal, regular rhythm, no murmur, no edema, distal pulses normal. Gastrointestinal soft, non-tender, no rebound, no guarding, normal bowel sounds, no distension, no pulsatile mass. Genitourinary no CVA tenderness. Musculoskeletal no midline vertebral tenderness, full range of motion, no calf swelling, no tenderness of extremities, no meningismus, good pulses, neurovascularly intact. Skin pink, warm, & dry, no rash, skin atraumatic. Neurologic awake, alert and oriented x 3, AAOx3, moves all 4 extremities equally, motor intact, sensory intact, CN II-XII intact, normal cerebellar, normal vision, normal speech. Psychiatric normal mood/affect. Heme/Lymph/Immune no lymphadenopathy. Differential Diagnosis: Includes but is not limited to in a particular order polysubstance abuse, substance abuse, homelessness, methamphetamine abuse Medical Decision Making: Plan for this patient he denies SI or HI, admits to methamphetamine abuse, he did get high earlier and presents emergency room. He appears somewhat slightly agitated but not threatening, denies want to harm anybody else. Will monitor for some Time. Make sure he does not become further psychotic on methamphetamine. Re-evaluation: 0357: Patient eloped from the emergency room. He is no longer in his room and his gout is in his room. He was not suicidal homicidal. He does state he did methamphetamine earlier. He was calm and cooperative when I evaluated him. Source: Patient, EMS - Personal History Tetanus Vaccine Date: < 10 YEARS - Medical/Surgical History Hx Asthma: No Hx Chronic Respiratory Disease: No Hx Diabetes: No Hx Cardiac Disease: No Hx Renal Disease: No Hx Cirrhosis: No Hx Alcoholism: No Hx HIV/AIDS: No Hx Splenectomy or Spleen Trauma: No Other PMH: Hep C bipolar depressio n - Social History Smoking Status: Never smoked Constitutional: Initial Vital Signs Temperature (C) 36.8 C 07/31/17 02:45 Heart Rate 120 H 07/31/17 02:45 Respiratory Rate 20 07/31/17 02:45 Blood Pressure 185/101 H 07/31/17 02:45 O2 Sat (%) 98 07/31/17 02:45 O2 Delivery Mode Room Air Allergies/Adverse Reactions: haloperidol [From Haldol] Allergy (Verified 04/01/17 05:53) ibuprofen Allergy (Verified 04/01/17 05:53) Home Medications: Medication Instructions Recorded BUPRENORPHINE/NALOXONE 8mg/2mg 1 tab SL BID 05/11/17 [SUBOXONE 8mg/2mg] BUPRENORPHINE/NALOXONE 8mg/2mg 1 tab SL BID tab 07/28/17 [SUBOXONE 8mg/2mg] OXcarbazepine [Trileptal 300mg (*)] 300 mg PO BID #20 tab 07/28/17 QUEtiapine FUMARATE [Seroquel 50 50 mg PO HS #10 tab 07/28/17 mg (*)] buPROPion XL [Wellbutrin 150mg XL] 150 mg PO DAILY #10 tab 07/28/17 Departure - Departure Disposition: Against Medical Advice Clinical Impression: Methamphetamine abuse Condition: Good Instructions: Methamphetamine Abuse (ED) Referrals: NONE *PRIMARY CARE P,. [Primary Care Provider] - As per Instructions
[2017-07-31 02:54] VITALS: BP 185/101
== END 2017-07-31 04:16 | disposition left against medical advice (07) ==
LOC: EDUNIT#
DX: F15.10 Other stimulant abuse, uncomplicated (principal)